=== PATIENT | male | born 1970 | race Caucasian/White ===

== ENCOUNTER 2021-01-21 10:19 | Inpatient (IN) ==
--- NOTE | 2021-01-21 10:38 | Emergency Department Note ---
Impression & Plan Elevated LFTs, Syncope, Hyperbilirubinemia, Hypokalemia, Pancytopenia ED Provider Note NAME: FREDDIE PIERCE AGE: 50 SEX: M : 1970 ARRIVES VIA: Ambulance INFORMANT: Patient, prehospital personnel ED PROVIDER(S): Arun Martinez DO CHIEF COMPLAINT: Possible seizure HPI: The patient is a 50-year-old male who presented to the emergency department from [facility] where he is inpatient for alcohol detox. He presented to the emergency department for possible seizure. The patient does not know what happened. He was recently excepted at [facility] yesterday. He last drank alcohol yesterday morning and was medically cleared by his primary care physician and then sent to [facility]. The patient normally drinks alcohol every day. He normally drinks a sixpack of alcohol a day. He is known to have very significant cirrhosis. He is not a candidate for transplant at this time because he continues to use alcohol but the patient is going to [facility] to try to stop drinking. He is noticed no lower extremity swelling. He denies having any trauma. He denies having any chest pain or difficulty breathing. He has had no recent falls. He denies having any neck pain. ROS: See above HPI for pertinent positives & negatives. A total of 10 systems reviewed and were otherwise negative. PAST MEDICAL HISTORY: See Below PAST SURGICAL HISTORY: See Below FAMILY HISTORY: See Below SOCIAL HISTORY: See Below HOME MEDICATIONS: See Below ALLERGIES: See Below VITALS: See Below PHYSICAL EXAMINATION: GENERAL: The patient is awake and alert. The patient is somewhat anxious appearing. EYES: The conjunctivae are icteric. The pupils are round and reactive. EARS, NOSE, MOUTH AND THROAT: The nose is without any evidence of any deformity. Mucous membranes are moist. Tongue is midline. NECK: The neck is nontender and supple. RESPIRATORY: Normal respiratory effort is noted there is no evidence of wheezing rhonchi or rales CARDIOVASCULAR: Regular rate and rhythm noted there no murmurs rubs or gallops normal S1 normal S2. GASTROINTESTINAL: The abdomen is soft. Abdomen is nontender. MUSCULOSKELETAL/EXTREMITIES: There is no evidence of gross deformity full range of motion is noted in the hips and shoulders. SKIN: Skin is warm and dry. NEUROLOGIC: Patient is awake alert and oriented x3. Strength is symmetric. MEDICAL DECISION MAKING: The patient is a 50-year-old male who presented to the emergency department from [facility] where he is currently inpatient for alcohol addiction. The patient had a syncopal episode at [facility]. This could be a seizure. He did not appear to have signs of withdrawal. I discussed the patient's laboratory and radiographic studies with him. He was found to have significant abnormalities with his liver function studies as well as pancytopenia. I discussed this case with the unassigned field tech. They feel we can manage this patient here. They also recommended that he be admitted to the hospitalist group. The patient was treated with IV fluids as well as potassium replacement. He was reevaluated multiple times. He was agreeable with the plan. I discussed his case with the on-call [facility] hospitalist. They have agreed to evaluate the patient in the emergency department for further management and disposition. Triage Nursing notes reviewed. Prior medical records reviewed Vital Signs: reviewed and remarkable for hypotension. Differential diagnosis: Epilepsy, infection, hypoglycemia, electrolyte abnormalities, cardiac sources, intracerebral event, trauma, toxicologic, neurologic, syncope, as well as other pathologies. ER treatment provided: See below Diagnostics interpreted by me: ECG: EKG was obtained in the emergency department. My interpretation is normal sinus rhythm at 63 bpm. There is no ectopy. There is no acute ST segment abno rmalities. No previous tracing was available for comparison. Cardiac Monitoring: An order was placed for continuous cardiac monitoring. The monitor shows a rate of 75 bpm with sinus rhythm. Laboratory studies: As stated above and show below. Imaging studies: See below Consultation(s): I discussed this case with Rola Bowen who is on for the [facility] group. They will evaluate the patient in the emergency department. I discussed this case with the on-call [facility] hospitalist group, Dr. Quinonez they will evaluate the patient in the emergency department. Past Med/Surg History Medical History Alcoholic cirrhosis Bipolar disorder Chronic alcohol abuse Depression with anxiety Surgical History Gastric bypass status for obesity Social History (Updated 01/21/21 @ 10:36 by Arun Martinez DO) Smoking Status: Current every day smoker Tobacco Type: Smokeless Tobacco (Dip or Chew) Hx Alcohol Use: Yes Alcohol type: beer Alcohol Intake Frequency: 4 or More x per/Week Feels Safe at Home: Yes Allergies Allergies Allergy/AdvReac Type Severity Reaction Status Date / Time No Known Allergies Allergy Unverified 01/21/21 11:47 Home Meds Home Medications Medication Instructions Recorded Confirmed buspirone 30 mg PO BID 01/21/21 01/21/21 propranolol 10 mg PO BID 01/21/21 01/21/21 quetiapine [Seroquel] 100 mg PO HS 01/21/21 01/21/21 Results & Data (ED) Vital Signs Vital Signs - 24 hr 01/21/21 10:34 01/21/21 10:40 01/21/21 11:12 Temperature 36.6 C Temperature Source Oral Pulse Rate 66 Pulse Rate from SpO2 Sensor 62 Respiratory Rate 18 19 Blood Pressure 91/65 L 97/67 L Blood Pressure Mean 73 77 Pulse Oximetry 98 98 100 Oxygen Delivery Method Room Air Room Air Sepsis Recent Fever Within 48 Hours No Sepsis New/Unexplained Change in Mental Status No Sepsis Action Taken by Nursing No Action Required 01/21/21 11:59 01/21/21 12:54 01/21/21 13:00 Temperature Temperature Source Pulse Rate 100 H 73 Pulse Rate from SpO2 Sensor 70 76 67 Respiratory Rate 19 16 12 Blood Pressure 90/61 L 90/58 L 82/58 L Blood Pressure Mean 70 68 66 Pulse Oximetry 96 97 98 Oxygen Delivery Method Sepsis Recent Fever Within 48 Hours Sepsis New/Unexplained Change in Mental Status Sepsis Action Taken by Nursing 01/21/21 14:17 01/21/21 14:31 01/21/21 15:00 Temperature Temperature Source Pulse Rate 66 Pulse Rate from SpO2 Sensor 64 64 77 Respiratory Rate 16 19 21 Blood Pressure 103/65 89/64 L Blood Pressure Mean 77 72 Pulse Oximetry 99 100 98 Oxygen Delivery Method Sepsis Recent Fever Within 48 Hours Sepsis New/Unexplained Change in Mental Status Sepsis Action Taken by Nursing 01/21/21 15:01 01/21/21 15:30 01/21/21 16:00 Temperature Temperature Source Pulse Rate 74 Pulse Rate from SpO2 Sensor 72 75 67 Respiratory Rate 21 22 15 Blood Pressure 96/67 L 96/60 L 82/59 L Blood Pressure Mean 76 72 66 Pulse Oximetry 99 98 100 Oxygen Delivery Method Sepsis Recent Fever Within 48 Hours Sepsis New/Unexplained Change in Mental Status Sepsis Action Taken by [facility]pc Medications Current Medication List: was personally reviewed by me Laboratory Data Attestation: I reviewed the patient's lab results. Result diagrams: 01/21/21 11:01 01/21/21 11:01 Lab Results 01/21/21 01/21/21 01/21/21 Range/Units 11:01 11:01 11:01 WBC 3.56 L (4.8-10.8) K/uL RBC 3.18 L (4.7-6.1) M/uL Hgb 11.2 L (14.0-18.0) g/dL Hct 33.2 L (42-52) % MCV 104.4 H (80-100) fL MCH 35.2 H (25-34) pg MCHC 33.7 (32-36) g/dL RDW Std Deviation 58.6 H (36.4-46.3) fL RDW Coeff of Alexandra 15.4 H (11.5-14.5) % Plt Count 86 L (130-400) K/uL MPV 11.3 H (7.4-10.4) fL Immature Gran % (Auto) 0.3 % Neut % (Auto) 71.3 % Lymph % (Auto) 16.6 % Rowan % (Auto) 10.4 % Eos % (Auto) 1.1 % Baso % (Auto) 0.3 % Neut # (Auto) 2.54 (1.4-6.5) K/uL Lymph # (Auto) 0.59 L (1.2-3.4) K/uL Rowan # (Auto) 0.37 (0.11-0.59) K/uL Eos # (Auto) 0.04 (0-0.5) K/uL Baso # (Auto) 0.01 (0-0.2) K/uL Immature Gran # (Auto) 0.01 (0.00-0.02) K/uL Platelet Estimate Decreased L (Normal) Target Cells 1+ PT 13.3 H (9.0-12.0) Seconds INR 1.3 H (0.9-1.1) APTT 31.0 (21.0-31.0) Seconds PTT Ratio 1.2 Sodium 136 (136-145) mmol/L Potassium 2.8 L (3.5-5.1) mmol/L Chloride 103 (98-107) mmol/L Carbon Dioxide 28 (21-32) mmol/L Anion Gap 5.0 (3-11) BUN 5 L (7-18) mg/dl Creatinine 0.58 L (0.6-1.4) mg/dl Est Cr Clr Drug Dosing 123.2 ml/min Est GFR ( Amer) 139.7 ml/min Est GFR (Non-Af Amer) 120.6 ml/min BUN/Creatinine Ratio 8.0 L (10-20) Glucose 111 H (70-99) mg/dl Calcium 8.1 L (8.5-10.1) mg/dl Magnesium 2.0 (1.8-2.4) mg/dl Total Bilirubin 9.0 H (0.2-1) mg/dl Direct Bilirubin 6.5 H (0-0.2) mg/dl AST 252 H (15-37) U/L ALT 63 (12-78) U/L Alkaline Phosphatase 325 H (45-117) U/L Ammonia (11-32) umol/L Total Creatine Kinase 27 L (39-308) U/L Troponin I < 0.015 (0-0.045) ng/ml Total Protein 7.2 (6.4-8.2) gm/dl Albumin 2.0 L (3.4-5.0) gm/dl Globulin 5.2 H (2.5-4.0) gm/dl Albumin/Globulin Ratio 0.4 L (0.9-2) Lipase 53 L (73-393) U/L Prolactin ng/ml Salicylates (2.8-20) mg/dl Acetaminophen (10-30) ug/ml Ethyl Alcohol mg/dL (0-3) mg/dl COVID-19 Eval Order SARS-CoV-2 (PCR) (Negative) 01/21/21 01/21/21 01/21/21 Range/Units 11:01 11:01 11:01 WBC (4.8-10.8) K/uL RBC (4.7-6.1) M/uL Hgb (14.0-18.0) g/dL Hct (42-52) % MCV (80-100) fL MCH (25-34) pg MCHC (32-36) g/dL RDW Std Deviation (36.4-46.3) fL RDW Coeff of Alexandra (11.5-14.5) % Plt Count (130-400) K/uL MPV (7.4-10.4) fL Immature Gran % (Auto) % Neut % (Auto) % Lymph % (Auto) % Rowan % (Auto) % Eos % (Auto) % Baso % (Auto) % Neut # (Auto) (1.4-6.5) K/uL Lymph # (Auto) (1.2-3.4) K/uL Rowan # (Auto) (0.11-0.59) K/uL Eos # (Auto) (0-0.5) K/uL Baso # (Auto) (0-0.2) K/uL Immature Gran # (Auto) (0.00-0.02) K/uL Platelet Estimate (Normal) Target Cells PT (9.0-12.0) Seconds INR (0.9-1.1) APTT (21.0-31.0) Seconds PTT Ratio Sodium (136-145) mmol/L Potassium (3.5-5.1) mmol/L Chloride (98-107) mmol/L Carbon Dioxide (21-32) mmol/L Anion Gap (3-11) BUN (7-18) mg/dl Creatinine (0.6-1.4) mg/dl Est Cr Clr Drug Dosing ml/min Est GFR ( Amer) ml/min Est GFR (Non-Af Amer) ml/min BUN/Creatinine Ratio (10-20) Glucose (70-99) mg/dl Calcium (8.5-10.1) mg/dl Magnesium (1.8-2.4) mg/dl Total Bilirubin (0.2-1) mg/dl Direct Bilirubin (0-0.2) mg/dl AST (15-37) U/L ALT (12-78) U/L Alkaline Phosphatase (45-117) U/L Ammonia (11-32) umol/L Total Creatine Kinase (39-308) U/L Troponin I (0-0.045) ng/ml Total Protein (6.4-8.2) gm/dl Albumin (3.4-5.0) gm/dl Globulin (2.5-4.0) gm/dl Albumin/Globulin Ratio (0.9-2) Lipase (73-393) U/L Prolactin 66.71 ng/ml Salicylates (2.8-20) mg/dl Acetaminophen (10-30) ug/ml Ethyl Alcohol mg/dL < 3.0 (0-3) mg/dl COVID-19 Eval Order SARS-CoV-2 (PCR) (Negative) 01/21/21 01/21/21 01/21/21 Range/Units 11:01 11:53 11:53 WBC (4.8-10.8) K/uL RBC (4.7-6.1) M/uL Hgb (14.0-18.0) g/dL Hct (42-52) % MCV (80-100) fL MCH (25-34) pg MCHC (32-36) g/dL RDW Std Deviation (36.4-46.3) fL RDW Coeff of Alexandra (11.5-14.5) % Plt Count (130-400) K/uL MPV (7.4-10.4) fL Immature Gran % (Auto) % Neut % (Auto) % Lymph % (Auto) % Rowan % (Auto) % Eos % (Auto) % Baso % (Auto) % Neut # (Auto) (1.4-6.5) K/uL Lymph # (Auto) (1.2-3.4) K/uL Rowan # (Auto) (0.11-0.59) K/uL Eos # (Auto) (0-0.5) K/uL Baso # (Auto) (0-0.2) K/uL Immature Gran # (Auto) (0.00-0.02) K/uL Platelet Estimate (Normal) Target Cells PT (9.0-12.0) Seconds INR (0.9-1.1) APTT (21.0-31.0) Seconds PTT Ratio Sodium (136-145) mmol/L Potassium (3.5-5.1) mmol/L Chloride (98-107) mmol/L Carbon Dioxide (21-32) mmol/L Anion Gap (3-11) BUN (7-18) mg/dl Creatinine (0.6-1.4) mg/dl Est Cr Clr Drug Dosing ml/min Est GFR ( Amer) ml/min Est GFR (Non-Af Amer) ml/min BUN/Creatinine Ratio (10-20) Glucose (70-99) mg/dl Calcium (8.5-10.1) mg/dl Magnesium (1.8-2.4) mg/dl Total Bilirubin (0.2-1) mg/dl Direct Bilirubin (0-0.2) mg/dl AST (15-37) U/L ALT (12-78) U/L Alkaline Phosphatase (45-117) U/L Ammonia < 10.0 L (11-32) umol/L Total Creatine Kinase (39-308) U/L Troponin I (0-0.045) ng/ml Total Protein (6.4-8.2) gm/dl Albumin (3.4-5.0) gm/dl Globulin (2.5-4.0) gm/dl Albumin/Globulin Ratio (0.9-2) Lipase (73-393) U/L Prolactin ng/ml Salicylates (2.8-20) mg/dl Acetaminophen (10-30) ug/ml Ethyl Alcohol mg/dL (0-3) mg/dl COVID-19 Eval Order Covid19 at [facility] SARS-CoV-2 (PCR) NEGATIVE (Negative) Administered Medications Discontinued Medications Sodium Chloride (Nss) 500 mls @ 999 mls/hr IV .Q31M JASS Stop: 01/21/21 11:15 Last Infusion: 01/21/21 11:12 Dose: 0 mls/hr Documented by: [id number] Admin: 01/21/21 10:41 Dose: 999 mls/hr Documented by: [id number] Sodium Chloride (Nss 1000ml) 500 mls @ 999 mls/hr IV .Q31M ONE Stop: 01/21/21 15:28 Last Infusion: 01/21/21 15:40 Dose: 0 mls/hr Documented by: [id number] Admin: 01/21/21 15:08 Dose: 999 mls/hr Documented by: [id number] Potassium Chloride (K Jakob / Wtr) 10 meq in 100 mls @ 100 mls/hr IV ONE ONE Stop: 01/21/21 15:57 Last Infusion: 01/21/21 16:08 Dose: 0 mls/hr Documented by: [id number] Admin: 01/21/21 15:08 Dose: 100 mls/hr Documented by: [id number] Sodium Chloride (Nss 1000ml) 500 mls @ 999 mls/hr IV .Q31M ONE Stop: 01/21/21 16:07 Last Infusion: 01/21/21 16:19 Dose: 0 mls/hr Documented by: [id number] Admin: 01/21/21 15:40 Dose: 999 mls/hr Documented by: [id number] Potassium Chloride (Potassium Chloride Crtab 20 Meq Tabcr) 20 meq PO NOW STA Stop: 01/21/21 14:59 Last Admin: 01/21/21 15:08 Dose: 20 meq Documented by: [id number] Imaging Data Radiologist's Impression: Chest X-Ray 01/21/21 10:34 XR chest 1V portable CLINICAL HISTORY: Atypical chest pain COMPARISON STUDY: No previous studies for comparison. FINDINGS: The heart is normal in size. There is no failure. There is no focal pulmonary consolidation. There is a 9 mm right midlung zone pulmonary nodule versus vascular summation. A chest CT scan is recommended in follow-up. There is no failure. There are no pleural effusions.[There is equivocal slight interstitial thickening. IMPRESSION: 1. 9 mm right midlung zone pulmonary nodule versus summation. A chest CT scan is recommended in follow-up. ACT 112: Positive. There are findings on this exam that require communication between the performing entity and the patient following Patient Test Result Information Act ([place] Act 112) guidelines. Electronically signed by: Papa Lopez M.D. 01/21/2021 10:[address] 01/21/21 10:34 CT OF THE HEAD WITHOUT CONTRAST CLINICAL HISTORY: SZ COMPARISON STUDY: No previous studies for comparison. CT DOSE: 537.48 mGy.cm TECHNIQUE: Helical axial images of the head were obtained without IV contrast. Automated exposure control was utilized for the study. A dose lowering technique was utilized adhering to the principles of ALARA. FINDINGS: No acute intracranial hemorrhage, midline shift or mass effect is present. Ventricular system is normal. Basilar cisterns are patent. There are no extra-axial collections. There are no findings to suggest acute dural sinus thrombosis or acute territorial infarct. There is no calvarial fracture. Left ethmoid air cells are partially opacified. IMPRESSION: No acute intracranial findings. ACT 112: Negative or not required by law. Electronically signed by: Michel Mccrary M.D. 01/21/2021 11:42 AM Discharge Plan Visit Data Chief Complaint: Seizure Stated Complaint: POSSIBLE SEIZURE, DETOX ED Provider: Arun Martinez Discharge Problem: Elevated LFTs, Syncope, Hyperbilirubinemia, Hypokalemia, Pancytopenia Patient Disposition: Being Evaluated by Hospitalist Condition: Good Forms Stand Alone Forms: [email or web address] Prescriptions Prescriptions: No Action quetiapine [Seroquel] 100 mg Tablet 100 mg PO HS RF: 0 propranolol 10 mg Tablet 10 mg PO BID RF: 0 buspirone 30 mg Tablet 30 mg PO BID RF: 0 Referrals Referrals: Jorje Shafer M.D. [Primary Care Provider] - Discharge Problem: Syncope Qualifiers: Syncope type: unspecified Qualified Code(s): R55 - Syncope and collapse
[2021-01-21] MEDS ORDERED: SODIUM CHLORIDE 0.9% 500 ML IV SCH (10:45)
--- NOTE | 2021-01-21 10:51 | XRay Report ---
XR chest 1V portable CLINICAL HISTORY: Atypical chest pain COMPARISON STUDY: No previous studies for comparison. FINDINGS: The heart is normal in size. There is no failure. There is no focal pulmonary consolidation . There is a 9 mm right midlung zone pulmonary nodule versus vascular summation. A chest CT scan is r ecommended in follow-up. There is no failure. There are no pleural effusions.[There is equivocal slig ht interstitial thickening. IMPRESSION: 1. 9 mm right midlung zone pulmonary nodule versus summation. A chest CT scan is recommended in follo w-up. ACT 112: Positive. There are findings on this exam that require communication between the performing entity and the patient following Patient Test Result Information Act ([place] Act 112) guidelines. Electronically signed by: Papa Lopez M.D. 01/21/2021 10:50 AM
[2021-01-21 11:25] LABS: INR 1.3 (0.9-1.1); Partial Thromboplastin Ratio 1.2; Prothrombin Time 13.3 Seconds (9.0-12.0)
[2021-01-21 11:34] LABS: Basophils # (auto) 0.01 K/uL (0-0.2); Basophils % (auto) 0.3 %; Eosinophils # (auto) 0.04 K/uL (0-0.5); Eosinophils % (auto) 1.1 %; Hematocrit (blood only) 33.2 % (42-52); Hemoglobin 11.2 g/dL (14.0-18.0); Immature Granulocytes # (auto) 0.01 K/uL (0.00-0.02); Immature Granulocytes % (auto) 0.3 %; Lymphocytes # (auto) 0.59 K/uL (1.2-3.4); Lymphocytes % (auto) 16.6 %; Mean Corpuscular Hemoglobin 35.2 pg (25-34); Mean Corpuscular Hgb Conc 33.7 g/dL (32-36); Mean Corpuscular Volume 104.4 fL (80-100); Mean Platelet Volume 11.3 fL (7.4-10.4); Monocytes # (auto) 0.37 K/uL (0.11-0.59); Monocytes % (auto) 10.4 %; Neutrophils # (auto) 2.54 K/uL (1.4-6.5); Neutrophils % (auto) 71.3 %; Platelet Count 86 K/uL (130-400); Platelet Estimate Decreased (Normal); RDW Coefficient of Variation 15.4 % (11.5-14.5); RDW Standard Deviation 58.6 fL (36.4-46.3); Red Blood Count 3.18 M/uL (4.7-6.1); Target Cells 1+; White Blood Count 3.56 K/uL (4.8-10.8)
[2021-01-21 11:38] LABS: Alanine Aminotransferase 63 U/L (12-78); Aspartate Aminotransferase 252 U/L (15-37); Bilirubin Direct 6.5 mg/dl (0-0.2); Blood Urea Nitrogen 5 mg/dl (7-18); Calcium 8.1 mg/dl (8.5-10.1); Carbon Dioxide 28 mmol/L (21-32); Chloride 103 mmol/L (98-107); Creatinine Clr Calc Pharmacy 123.2 ml/min; Est GFR (African American) 139.7 ml/min; Est GFR (Non-African American) 120.6 ml/min; Glucose 111 mg/dl (70-99); Lipase 53 U/L (73-393); Potassium 2.8 mmol/L (3.5-5.1); Sodium 136 mmol/L (136-145)
[2021-01-21 11:40] LABS: Albumin Globulin Ratio 0.4 (0.9-2); Alkaline Phosphatase 325 U/L (45-117); Creatine Kinase 27 U/L (39-308); Globulin 5.2 gm/dl (2.5-4.0); Total Protein 7.2 gm/dl (6.4-8.2); Troponin I < 0.015 ng/ml (0-0.045)
--- NOTE | 2021-01-21 11:44 | CT Scan Report ---
CT OF THE HEAD WITHOUT CONTRAST CLINICAL HISTORY: SZ COMPARISON STUDY: No previous studies for comparison. CT DOSE: 537.48 mGy.cm TECHNIQUE: Helical axial images of the head were obtained without IV contrast. Automated exposure con trol was utilized for the study. A dose lowering technique was utilized adhering to the principles o f ALARA. FINDINGS: No acute intracranial hemorrhage, midline shift or mass effect is present. Ventricular syst em is normal. Basilar cisterns are patent. There are no extra-axial collections. There are no finding s to suggest acute dural sinus thrombosis or acute territorial infarct. There is no calvarial fractur e. Left ethmoid air cells are partially opacified. IMPRESSION: No acute intracranial findings. ACT 112: Negative or not required by law. Electronically signed by: Michel Mccrary M.D. 01/21/2021 11:42 AM
[2021-01-21] MEDS ORDERED: POTASSIUM CHLORIDE / WTR 10 MEQ/100 ML PLCT IV ONE (14:58)
[2021-01-21] MEDS ORDERED: POTASSIUM CHLORIDE CRTAB 20 MEQ TABCR PO STA (14:58)
[2021-01-21] MEDS ORDERED: SODIUM CHLORIDE 0.9% 1000ML 500 ML IV ONE ×2 (14:58→15:37)
--- NOTE | 2021-01-21 15:55 | Electrocardiogram Report ---
Test Reason : Blood Pressure : / mmHG Vent. Rate : 063 BPM Atrial Rate : 063 BPM P-R Int : 164 ms QRS Dur : 084 ms QT Int : 452 ms P-R-T Axes : 068 028 028 degrees QTc Int : 462 ms Normal sinus rhythm Normal ECG No previous ECGs available Confirmed by Armaan Cobb ([id number]) on 01/21/2021 3:55:26 PM Referred By: Confirmed By:Armaan Cobb
--- NOTE | 2021-01-21 16:13 | Gastrointestinal Consultation ---
Date of Consultation January 21, 2021 Assessment & Plan (1) Elevated LFTs: 50 year old male with ETOH abuse history, sober from ETOH x 4 days admitted w/ report of syncopal episode at [facility]. He is awake, alert, oriented, answering questions appropriately although is a poor historian without evidence of asterixis. Ammonia level WNL and INR 1.3 w/ thrombocytopenia. DDX ETOH hepatitis in the setting of ETOH cirrhosis. MELD 19, DF 15 Recommend admission here locally ETOH withdrawal protocol Check urine culture, blood cultures, chest XR ABD US to rule out biliary obstruction Acute hep panel ETOH cessation Daily MELD and DF labs Defer glucocorticoid/NAC therapy presently given low DF If rising INR or change in mental status consider transfer to transplant center Thank you for allowing us to participate in the care of this patient. Please call with any acute changes, questions or concerns. Please see addendum below with additional recommendation from my supervising physician. Supervising Physician Co-Signing Physician Notes Attending attestation I have seen, examined this patient, and agree with the findings and above by our mid-level provider CAMERON Ruelas, with the following additions: Patient adm with possible syncope vs seizure Concern for Alcoholic hepatitis, no signs or symptoms of bleeding Rule out infection, CXR, rule out obstruction IVF, Etoh Withdrawl protocoal, call with questions History of Present Illness Reason for Consultation: elevated LFTs Requesting Physician: Juan Attending Physician: Juan History of Present Illness 50 year old male, difficult historian presenting from [facility] program for evaluation of syncopal episodes - GI asked to evaluate given elevated LFTs, jaundice. Pt was seen and evaluated in the ED w/ Dr. Martinez. Pt notes that he has used ETOH intermittent for years. This was fairy constant, suggesting 12 beers daily for quite some time. Sometime this year he did stop ETOH and was sober for 6 months. Notes he lost his insurance, suffered a fracture and started using ETOH again. About 6 beers daily. A few weeks ago, a foreign language instructor noted he was jaundiced which prompted ETOH cessation. Feeling well. Denies abd pain. No nausea. Will have intermittent regurgitation/emesis from time to time. No GERD. Moving bowel well. Denies black bloody stools but suggests he does not often look. Last ETOH was 4 days ago, 6 beers Denies IV/IN drug use Mother had cirrhosis but was not a drinker Allergies Allergy/AdvReac Type Severity Reaction Status Date / Time No Known Allergies Allergy Unverified 01/21/21 11:47 Home Medications Medication Instructions Recorded Confirmed Type buspirone 30 mg PO BID 01/21/21 01/21/21 History propranolol 10 mg PO BID 01/21/21 01/21/21 History quetiapine [Seroquel] 100 mg PO HS 01/21/21 01/21/21 History Patient History Medical History Alcoholic cirrhosis Bipolar disorder Chronic alcohol abuse Depression with anxiety Surgical History Gastric bypass status for obesity Social History (Updated 01/21/21 @ 10:36 by Arun Martinez DO) Smoking Status: Current every day smoker Tobacco Type: Smokeless Tobacco (Dip or Chew) Hx Alcohol Use: Yes Alcohol type: beer Alcohol Intake Frequency: 4 or More x per/Week Feels Safe at Home: Yes Review of Systems Review of Systems: All systems reviewed & are unremarkable except as noted in HPI & below Physical Exam Constitutional: + ill appearing (jaundiced), + thin, cooperative and co mfortable; no acute distress and not combative Neck: trachea midline; no tracheal deviation and no neck crepitus Respiratory: normal respiratory effort; no respiratory distress, no labored breathing and no cough Cardiovascular: Rate/Rhythm: regular rate and regular rhythm Heart Sounds: normal S1 and normal S2 Gastrointestinal (Abdomen): Percussion/Palpation: abdomen soft; abdomen nontender, no guarding, abdomen not rigid, no hernia and no abdominal mass Skin: no rashes, warm and dry + jaundice Results & Data ([facility]) Vital Signs (Past 12 Hours) Vital Signs Temp Pulse Resp BP Pulse Ox 01/21/21 15:30 74 22 96/60 L 98 01/21/21 15:01 21 96/67 L 99 01/21/21 15:00 21 98 01/21/21 14:31 66 19 89/64 L 100 01/21/21 14:17 16 103/65 99 01/21/21 13:00 73 12 82/58 L 98 01/21/21 12:54 100 H 16 90/58 L 97 01/21/21 11:59 19 90/61 L 96 01/21/21 11:12 19 97/67 L 100 01/21/21 10:40 98 01/21/21 10:34 36.6 C 66 18 91/65 L 98 Laboratory Results 01/21/21 01/21/21 01/21/21 Range/Units 11:53 11:53 11:49 WBC (4.8-10.8) K/uL RBC (4.7-6.1) M/uL Hgb (14.0-18.0) g/dL Hct (42-52) % MCV (80-100) fL MCH (25-34) pg MCHC (32-36) g/dL RDW Std Deviation (36.4-46.3) fL RDW Coeff of Alexandra (11.5-14.5) % Plt Count (130-400) K/uL MPV (7.4-10.4) fL Immature Gran % (Auto) % Neut % (Auto) % Lymph % (Auto) % Parke % (Auto) % Eos % (Auto) % Baso % (Auto) % Neut # (Auto) (1.4-6.5) K/uL Lymph # (Auto) (1.2-3.4) K/uL Parke # (Auto) (0.11-0.59) K/uL Eos # (Auto) (0-0.5) K/uL Baso # (Auto) (0-0.2) K/uL Immature Gran # (Auto) (0.00-0.02) K/uL Platelet Estimate (Normal) Target Cells PT (9.0-12.0) Seconds INR (0.9-1.1) APTT (21.0-31.0) Seconds PTT Ratio Sodium (136-145) mmol/L Potassium (3.5-5.1) mmol/L Chloride (98-107) mmol/L Carbon Dioxide (21-32) mmol/L Anion Gap (3-11) BUN (7-18) mg/dl Creatinine (0.6-1.4) mg/dl Est Cr Clr Drug Dosing ml/min Est GFR ( Amer) ml/min Est GFR (Non-Af Amer) ml/min BUN/Creatinine Ratio (10-20) Glucose (70-99) mg/dl Calcium (8.5-10.1) mg/dl Magnesium (1.8-2.4) mg/dl Total Bilirubin (0.2-1) mg/dl Direct Bilirubin (0-0.2) mg/dl AST (15-37) U/L ALT (12-78) U/L Alkaline Phosphatase (45-117) U/L Ammonia (11-32) umol/L Total Creatine Kinase (39-308) U/L Troponin I (0-0.045) ng/ml Total Protein (6.4-8.2) gm/dl Albumin (3.4-5.0) gm/dl Globulin (2.5-4.0) gm/dl Albumin/Globulin Ratio (0.9-2) Lipase (73-393) U/L Prolactin ng/ml Salicylates (2.8-20) mg/dl Acetaminophen (10-30) ug/ml Ethyl Alcohol mg/dL (0-3) mg/dl COVID-19 Eval Order Covid19 at [facility] SARS-CoV-2 (PCR) NEGATIVE (Negative) Miscellaneous Test Pending Miscellaneous Test 2 Pending 01/21/21 01/21/21 01/21/21 Range/Units 11:01 11:01 11:01 WBC (4.8-10.8) K/uL RBC (4.7-6.1) M/uL Hgb (14.0-18.0) g/dL Hct (42-52) % MCV (80-100) fL MCH (25-34) pg MCHC (32-36) g/dL RDW Std Deviation (36.4-46.3) fL RDW Coeff of Alexandra (11.5-14.5) % Plt Count (130-400) K/uL MPV (7.4-10.4) fL Immature Gran % (Auto) % Neut % (Auto) % Lymph % (Auto) % Parke % (Auto) % Eos % (Auto) % Baso % (Auto) % Neut # (Auto) (1.4-6.5) K/uL Lymph # (Auto) (1.2-3.4) K/uL Parke # (Auto) (0.11-0.59) K/uL Eos # (Auto) (0-0.5) K/uL Baso # (Auto) (0-0.2) K/uL Immature Gran # (Auto) (0.00-0.02) K/uL Platelet Estimate (Normal) Target Cells PT (9.0-12.0) Seconds INR (0.9-1.1) APTT (21.0-31.0) Seconds PTT Ratio Sodium (136-145) mmol/L Potassium (3.5-5.1) mmol/L Chloride (98-107) mmol/L Carbon Dioxide (21-32) mmol/L Anion Gap (3-11) BUN (7-18) mg/dl Creatinine (0.6-1.4) mg/dl Est Cr Clr Drug Dosing ml/min Est GFR ( Amer) ml/min Est GFR (Non-Af Amer) ml/min BUN/Creatinine Ratio (10-20) Glucose (70-99) mg/dl Calcium (8.5-10.1) mg/dl Magnesium (1.8-2.4) mg/dl Total Bilirubin (0.2-1) mg/dl Direct Bilirubin (0-0.2) mg/dl AST (15-37) U/L ALT (12-78) U/L Alkaline Phosphatase (45-117) U/L Ammonia < 10.0 L (11-32) umol/L Total Creatine Kinase (39-308) U/L Troponin I (0-0.045) ng/ml Total Protein (6.4-8.2) gm/dl Albumin (3.4-5.0) gm/dl Globulin (2.5-4.0) gm/dl Albumin/Globulin Ratio (0.9-2) Lipase (73-393) U/L Prolactin ng/ml Salicylates (2.8-20) mg/dl Acetaminophen (10-30) ug/ml Ethyl Alcohol mg/dL < 3.0 (0-3) mg/dl COVID-19 Eval Order SARS-CoV-2 (PCR) (Negative) Miscellaneous Test Miscellaneous Test 2 01/21/21 01/21/21 01/21/21 Range/Units 11:01 11:01 11:01 WBC (4.8-10.8) K/uL RBC (4.7-6.1) M/uL Hgb (14.0-18.0) g/dL Hct (42-52) % MCV (80-100) fL MCH (25-34) pg MCHC (32-36) g/dL RDW Std Deviation (36.4-46.3) fL RDW Coeff of Alexandra (11.5-14.5) % Plt Count (130-400) K/uL MPV (7.4-10.4) fL Immature Gran % (Auto) % Neut % (Auto) % Lymph % (Auto) % Parke % (Auto) % Eos % (Auto) % Baso % (Auto) % Neut # (Auto) (1.4-6.5) K/uL Lymph # (Auto) (1.2-3.4) K/uL Parke # (Auto) (0.11-0.59) K/uL Eos # (Auto) (0-0.5) K/uL Baso # (Auto) (0-0.2) K/uL Immature Gran # (Auto) (0.00-0.02) K/uL Platelet Estimate (Normal) Target Cells PT 13.3 H (9.0-12.0) Seconds INR 1.3 H (0.9-1.1) APTT 31.0 (21.0-31.0) Seconds PTT Ratio 1.2 Sodium 136 (136-145) mmol/L Potassium 2.8 L (3.5-5.1) mmol/L Chloride 103 (98-107) mmol/L Carbon Dioxide 28 (21-32) mmol/L Anion Gap 5.0 (3-11) BUN 5 L (7-18) mg/dl Creatinine 0.58 L (0.6-1.4) mg/dl Est Cr Clr Drug Dosing 123.2 ml/min Est GFR ( Amer) 139.7 ml/min Est GFR (Non-Af Amer) 120.6 ml/min BUN/Creatinine Ratio 8.0 L (10-20) Glucose 111 H (70-99) mg/dl Calcium 8.1 L (8.5-10.1) mg/dl Magnesium 2.0 (1.8-2.4) mg/dl Total Bilirubin 9.0 H (0.2-1) mg/dl Direct Bilirubin 6.5 H (0-0.2) mg/dl AST 252 H (15-37) U/L ALT 63 (12-78) U/L Alkaline Phosphatase 325 H (45-117) U/L Ammonia (11-32) umol/L Total Creatine Kinase 27 L (39-308) U/L Troponin I < 0.015 (0-0.045) ng/ml Total Protein 7.2 (6.4-8.2) gm/dl Albumin 2.0 L (3.4-5.0) gm/dl Globulin 5.2 H (2.5-4.0) gm/dl Albumin/Globulin Ratio 0.4 L (0.9-2) Lipase 53 L (73-393) U/L Prolactin 66.71 ng/ml Salicylates (2.8-20) mg/dl Acetaminophen (10-30) ug/ml Ethyl Alcohol mg/dL (0-3) mg/dl COVID-19 Eval Order SARS-CoV-2 (PCR) (Negative) Miscellaneous Test Miscellaneous Test 2 01/21/21 Range/Units 11:01 WBC 3.56 L (4.8-10.8) K/uL RBC 3.18 L (4.7-6.1) M/uL Hgb 11.2 L (14.0-18.0) g/dL Hct 33.2 L (42-52) % MCV 104.4 H (80-100) fL MCH 35.2 H (25-34) pg MCHC 33.7 (32-36) g/dL RDW Std Deviation 58.6 H (36.4-46.3) fL RDW Coeff of Alexandra 15.4 H (11.5-14.5) % Plt Count 86 L (130-400) K/uL MPV 11.3 H (7.4-10.4) fL Immature Gran % (Auto) 0.3 % Neut % (Auto) 71.3 % Lymph % (Auto) 16.6 % Parke % (Auto) 10.4 % Eos % (Auto) 1.1 % Baso % (Auto) 0.3 % Neut # (Auto) 2.54 (1.4-6.5) K/uL Lymph # (Auto) 0.59 L (1.2-3.4) K/uL Parke # (Auto) 0.37 (0.11-0.59) K/uL Eos # (Auto) 0.04 (0-0.5) K/uL Baso # (Auto) 0.01 (0-0.2) K/uL Immature Gran # (Auto) 0.01 (0.00-0.02) K/uL Platelet Estimate Decreased L (Normal) Target Cells 1+ PT (9.0-12.0) Seconds INR (0.9-1.1) APTT (21.0-31.0) Seconds PTT Ratio Sodium (136-145) mmol/L Potassium (3.5-5.1) mmol/L Chloride (98-107) mmol/L Carbon Dioxide (21-32) mmol/L Anion Gap (3-11) BUN (7-18) mg/dl Creatinine (0.6-1.4) mg/dl Est Cr Clr Drug Dosing ml/min Est GFR ( Amer) ml/min Est GFR (Non-Af Amer) ml/min BUN/Creatinine Ratio (10-20) Glucose (70-99) mg/dl Calcium (8.5-10.1) mg/dl Magnesium (1.8-2.4) mg/dl Total Bilirubin (0.2-1) mg/dl Direct Bilirubin (0-0.2) mg/dl AST (15-37) U/L ALT (12-78) U/L Alkaline Phosphatase (45-117) U/L Ammonia (11-32) umol/L Total Creatine Kinase (39-308) U/L Troponin I (0-0.045) ng/ml Total Protein (6.4-8.2) gm/dl Albumin (3.4-5.0) gm/dl Globulin (2.5-4.0) gm/dl Albumin/Globulin Ratio (0.9-2) Lipase (73-393) U/L Prolactin ng/ml Salicylates (2.8-20) mg/dl Acetaminophen (10-30) ug/ml Ethyl Alcohol mg/dL (0-3) mg/dl COVID-19 Eval Order SARS-CoV-2 (PCR) (Negative) Miscellaneous Test Miscellaneous Test 2
--- NOTE | 2021-01-21 17:14 | Ultrasound Report ---
ABDOMINAL ULTRASOUND, RIGHT UPPER QUADRANT HISTORY: Elevated bilirubin.. COMPARISON: None. FINDINGS: Pancreas: The pancreatic head and tail are obscured by overlying bowel gas. The remaining portions of the pancreas are within normal limits. Liver: 17 cm in length. Slightly heterogeneous echotexture. No hepatic masses or intrahepatic bile du ct dilatation. Trace perihepatic ascites. Subtle nodular contour to the liver suggestive of cirrhosis . Gallbladder: Sludge and small stones seen within the gallbladder. Diffuse gallbladder wall thickening measuring up to 5 mm. Trace pericholecystic fluid. The technologist reported a negative sonographic Walls sign. CBD: 4 mm. Right kidney: No hydronephrosis. IMPRESSION: 1. Subtle nodular contour to the liver with trace perihepatic ascites. Findings likely represent mild cirrhosis. 2. Diffuse gallbladder wall thickening, trace pericholecystic fluid, and small stones/sludge within t he gallbladder. This nonspecific but may be due to the patient's suspected cirrhosis. An acute cholec ystitis could also have a similar appearance but is considered less likely given the negative sonogra phic Walls sign. Clinical correlation recommended. ACT 112: Negative or not required by law. Electronically signed by: Derek Davison M.D. 01/21/2021 5:13 PM
[2021-01-21 17:34] LABS: Hepatitis B Surf Ag Rflx Conf Neg (Neg)
[2021-01-21] MEDS ORDERED: LACTATED RINGER'S 500 ML IV ONE (17:37)
[2021-01-21 18:02] LABS: Hepatitis C IgG 13Yrs+Old_Rflx Neg (Neg)
--- NOTE | 2021-01-21 18:10 | History & Physical Report ---
Date of Service January 21, 2021 Assessment & Plan (1) Alcoholic hepatitis: Patient not encephalopathic with INR 1.3 and NH3 <10 - MELD 19, Discriminant function-15 - As per GI- no NAC, steroids, or lactulose at this time - Follow daily levels - Hypotension multifactorial including liver disease- - Follow electrolytes, Calcium should increase with his dietary intake - INR/PTT/Fibrinogen in the morning - Normal Lipase - Hepatitis labs pending - Thiamine 300 mg PO daily - Folate 1mg daily - Albumin 2.0 Unable to perform salicylates/acetaminophen with icteric level (2) Syncope: Most likely per reports and physical exam consistent with hypovolemia - Patient also endorses that he has not been eating or drinking much sine at [facility] because of gastric bypass surgery and the food not being good - Will give 500 ml LR bolus followed by LR at 125, can decrease with urine output - Hold Propranolol until euvolemic- then restart for portal hypertension (3) Hyperbilirubinemia: Gallbladder not tender with palpation- consistent with his liver pathology and juandice - Ultrasound abomen completed - Lipase normal (4) Hypokalemia: Given total of 30 meq in the EMD - Continue with another 60meq K PO x1 now - LR as above - Follow lytes (5) Hypotension: multifactorial as above, mentating well, no evidence of organ dysfunction or sepsis - if continues consider albumin 25% - chronic need with cirrhosis can consider midodrine 5-15 mg - Likely wrong sized cuff used for measurement (6) Pancytopenia: Pancytopenia likely at this time related to his bone marrow supression from ETOH use - follow platelet count - Continue with VTE prophylaxis - Monitor HGB/HCT with equilibration of volume status (7) Alcohol abuse: Withdraw protocol with Ativan for symtpology (8) Abnormal chest xray: 1. 9 mm right midlung zone pulmonary nodule versus summation. A chest CT scan is recommended in follow-up. (9) Bipolar disorder: Continue Buspar and Seroquel (10) H/O gastric bypass: - dietary consult for further recommendations - Pyroxidine (B-6) daily, will also help with seizure threshold (11) Malnutrition: With ETOH abuse, poor dietary intake, lack of vitamin supplementation - albumin 2.0 History of Present Illness Primary Care Provider: Jorje Shafer 50 YOM with past medical history of alcohol misuse/abuse, with alcoholic hepatitis/cirrhosis and bipolar. Patient was at [facility] rehab for the past 4 days attempting to get sober again. He was sitting on the couch and passed out, he just remembers getting light headed and "fuzzy" he denies any loss of bowel or bladder incontinence, he reports that he has not had seizures before when trying to stop drinking. The patien'ts last drink was 4 days ago. His normal consumption is a 6 pack per night of [place] light. Patient also reports he was sober for 6 months prior to falling down the steps and breaking his leg, but unable to recall how long ago this was. Patient also endorses history of simón sofie bypass surgery in the past and remains on vitamin b6 for this but is not in his medication recommendation. He denies any incidence of dark, tarry stools, or hematemesis. Unsure of variceal history. Patient is icteric, not encephalopathic, and his INR is normal at this time. LFTs are normal, with elevated bilirubin and thrombocytopenia. he has no other evidence of organ dysfunction. His abdomen is not ascitic and not tender. In the EMD he received 2L crystalloids and awaiting urinary sampling. Blood cultures and urine cultures will be drawn, GI has been consulted by the EMD. He will be admitted, continue with IVF and follow his MELD/INR/Encephalopathy/detoxification. Allergies Allergy/AdvReac Type Severity Reaction Status Date / Time No Known Allergies Allergy Unverified 01/21/21 11:47 Home Medications Medication Instructions Recorded Confirmed Type buspirone 30 mg PO BID 01/21/21 01/21/21 History propranolol 10 mg PO BID 01/21/21 01/21/21 History quetiapine [Seroquel] 100 mg PO HS 01/21/21 01/21/21 History Past Med/Surg History Medical History (Updated 01/21/21 @ 18:56 by CAMERON Nieves) Alcoholic cirrhosis Bipolar disorder Chronic alcohol abuse Depression with anxiety Surgical History (Updated 01/21/21 @ 18:51 by CAMERON Nieves) Gastric bypass status for obesity Social History Smoking Status: Never smoker Tobacco Type: Smokeless Tobacco (Dip or Chew) Do You Dip or Chew Tobacco: Yes; Hx Alcohol Use: Yes Alcohol type: beer Alcohol Intake Frequency: 4 or More x per/Week Hx Substance Use: No Preferred Language: Russian Beliefs That Will Affect Care: None Current Living Situation: Spouse Other Information That Helps Us Care for You: No Feels Safe at Home: Yes Safety Concerns: Feels Safe At This Time Assistive Devices: None Review of Systems Review of Systems: REVIEW OF SYSTEMS: Constitutional: No fever, sweats or chills Eyes: (+) icterus, No diplopia, no worsening or blurred vision ENT: normal hearing, no trouble swallowing Respiratory: No cough, sputum, dyspnea at rest or on exertion Cardiovascular: No chest pain, tightness or palpitations Abdomen: No pain, nausea, vomiting, diarrhea or constipation Musculoskeletal: No joint pain, calf pain, swelling Neurologic: (+) genralized weakness, numbness/tingling, or balance problems Psychiatric: (+) bipolar and depression, No anxiety Skin: (+) echymosis, No rash or itch Physical Exam Physical Exam: PHYSICAL EXAM: General: awake, alert, appropriate and no apparent distress Head: Normocephalic, atraumatic ENT: mild icterus, PERRLA, EOMI, no pharyngeal exudate, mucous membranes moist Neuro: AAO x 3, speech clear and appropriate, strength intact bilaterally 5/5, sensation intact and equal all extremities and dermatomes, no pronator drift, no asterixis no shaking, coordination intact Chest: equal rise and fall of the chest, no accessory muscle use, no heaves or thrills, Clear to auscultation, on room air, Cardiac: Regular rate and rhythm, telemetry reviewed- NSR no ectopy, skin warm dry, cap refill <3 seconds, peripheral pulses +2 no JVD, no murmur, no edema GI: NABS x 4 quadrants, soft, nontender to palpation, no rebound, guarding or tenderness, liver enlarged, no cirrhosis : Has yet to void, but denies any difficulty or pain with urination Extremities: Normal inspection, no peripheral edema or erythema, calfs nontender to palpation Psych: Normal mood and affect Skin: jaundiced, no rash or erythema Results & Data Results & Data ([facility]) Vital Signs (Past 12 Hours) Vital Signs Temp Pulse Resp BP Pulse Ox 01/21/21 16:30 81/58 L 99 01/21/21 16:00 15 82/59 L 100 01/21/21 15:30 74 22 96/60 L 98 01/21/21 15:01 21 96/67 L 99 01/21/21 15:00 21 98 01/21/21 14:31 66 19 89/64 L 100 01/21/21 14:17 16 103/65 99 01/21/21 13:00 73 12 82/58 L 98 01/21/21 12:54 100 H 16 90/58 L 97 01/21/21 11:59 19 90/61 L 96 01/21/21 11:12 19 97/67 L 100 01/21/21 10:40 98 01/21/21 10:34 36.6 C 66 18 91/65 L 98 Laboratory Results Abnormal lab results 01/21/21 01/21/21 01/21/21 Range/Units 11:01 11:01 11:01 WBC 3.56 L (4.8-10.8) K/uL RBC 3.18 L (4.7-6.1) M/uL Hgb 11.2 L (14.0-18.0) g/dL Hct 33.2 L (42-52) % MCV 104.4 H (80-100) fL MCH 35.2 H (25-34) pg RDW Std Deviation 58.6 H (36.4-46.3) fL RDW Coeff of Alexandra 15.4 H (11.5-14.5) % Plt Count 86 L (130-400) K/uL MPV 11.3 H (7.4-10.4) fL Lymph # (Auto) 0.59 L (1.2-3.4) K/uL Platelet Estimate Decreased L (Normal) PT 13.3 H (9.0-12.0) Seconds INR 1.3 H (0.9-1.1) Potassium 2.8 L (3.5-5.1) mmol/L BUN 5 L (7-18) mg/dl Creatinine 0.58 L (0.6-1.4) mg/dl BUN/Creatinine Ratio 8.0 L (10-20) Glucose 111 H (70-99) mg/dl Calcium 8.1 L (8.5-10.1) mg/dl Total Bilirubin 9.0 H (0.2-1) mg/dl Direct Bilirubin 6.5 H (0-0.2) mg/dl AST 252 H (15-37) U/L Alkaline Phosphatase 325 H (45-117) U/L Ammonia (11-32) umol/L Total Creatine Kinase 27 L (39-308) U/L Albumin 2.0 L (3.4-5.0) gm/dl Globulin 5.2 H (2.5-4.0) gm/dl Albumin/Globulin Ratio 0.4 L (0.9-2) Lipase 53 L (73-393) U/L 01/21/21 Range/Units 11:01 WBC (4.8-10.8) K/uL RBC (4.7-6.1) M/uL Hgb (14.0-18.0) g/dL Hct (42-52) % MCV (80-100) fL MCH (25-34) pg RDW Std Deviation (36.4-46.3) fL RDW Coeff of Alexandra (11.5-14.5) % Plt Count (130-400) K/uL MPV (7.4-10.4) fL Lymph # (Auto) (1.2-3.4) K/uL Platelet Estimate (Normal) PT (9.0-12.0) Seconds INR (0.9-1.1) Potassium (3.5-5.1) mmol/L BUN (7-18) mg/dl Creatinine (0.6-1.4) mg/dl BUN/Creatinine Ratio (10-20) Glucose (70-99) mg/dl Calcium (8.5-10.1) mg/dl Total Bilirubin (0.2-1) mg/dl Direct Bilirubin (0-0.2) mg/dl AST (15-37) U/L Alkaline Phosphatase (45-117) U/L Ammonia < 10.0 L (11-32) umol/L Total Creatine Kinase (39-308) U/L Albumin (3.4-5.0) gm/dl Globulin (2.5-4.0) gm/dl Albumin/Globulin Ratio (0.9-2) Lipase (73-393) U/L Diagnostic Findings Chest X-Ray 01/21/21 10:34 XR chest 1V portable CLINICAL HISTORY: Atypical chest pain COMPARISON STUDY: No previous studies for comparison. FINDINGS: The heart is normal in size. There is no failure. There is no focal pulmonary consolidation. There is a 9 mm right midlung zone pulmonary nodule versus vascular summation. A chest CT scan is recommended in follow-up. There is no failure. There are no pleural effusions.[There is equivocal slight interstitial thickening. IMPRESSION: 1. 9 mm right midlung zone pulmonary nodule versus summation. A chest CT scan is recommended in follow-up. Electronically signed by: Papa Lopez M.D. 01/21/2021 10:[address] 01/21/21 10:34 CT OF THE HEAD WITHOUT CONTRAST CLINICAL HISTORY: SZ COMPARISON STUDY: No previous studies for comparison. CT DOSE: 537.48 mGy.cm TECHNIQUE: Helical axial images of the head were obtained without IV contrast. Automated exposure control was utilized for the study. A dose lowering technique was utilized adhering to the principles of ALARA. FINDINGS: No acute intracranial hemorrhage, midline shift or mass effect is present. Ventricular system is normal. Basilar cisterns are patent. There are no extra-axial collections. There are no findings to suggest acute dural sinus thrombosis or acute territorial infarct. There is no calvarial fracture. Left ethmoid air cells are partially opacified. IMPRESSION: No acute intracranial findings. Electronically signed by: Michel Mccrary M.D. 01/21/2021 11:42 AM Gallbladder Ultrasound 01/21/21 15:24 ABDOMINAL ULTRASOUND, RIGHT UPPER QUADRANT HISTORY: Elevated bilirubin.. COMPARISON: None. FINDINGS: Pancreas: The pancreatic head and tail are obscured by overlying bowel gas. The remaining portions of the pancreas are within normal limits. Liver: 17 cm in length. Slightly heterogeneous echotexture. No hepatic masses or intrahepatic bile duct dilatation. Trace perihepatic ascites. Subtle nodular contour to the liver suggestive of cirrhosis. Gallbladder: Sludge and small stones seen within the gallbladder. Diffuse gallbladder wall thickening measuring up to 5 mm. Trace pericholecystic fluid. The technologist reported a negative sonographic Walls sign. CBD: 4 mm. Right kidney: No hydronephrosis. IMPRESSION: 1. Subtle nodular contour to the liver with trace perihepatic ascites. Findings likely represent mild cirrhosis. 2. Diffuse gallbladder wall thickening, trace pericholecystic fluid, and small stones/sludge within the gallbladder. This nonspecific but may be due to the patient's suspected cirrhosis. An acute cholecystitis could also have a similar appearance but is considered less likely given the negative sonographic Walls sign. Clinical correlation recommended. Electronically signed by: Derek Davison M.D. 01/21/2021 5:13 PM Medications Administered Discontinued Medications Sodium Chloride (Nss) 500 mls @ 999 mls/hr IV .Q31M JASS Stop: 01/21/21 11:15 Last Infusion: 01/21/21 11:12 Dose: 0 mls/hr Documented by: [id number] Admin: 01/21/21 10:41 Dose: 999 mls/hr Documented by: [id number] Sodium Chloride (Nss 1000ml) 500 mls @ 999 mls/hr IV .Q31M ONE Stop: 01/21/21 15:28 Last Infusion: 01/21/21 15:40 Dose: 0 mls/hr Documented by: [id number] Admin: 01/21/21 15:08 Dose: 999 mls/hr Documented by: [id number] Potassium Chloride (K Jakob / Wtr) 10 meq in 100 mls @ 100 mls/hr IV ONE ONE Stop: 01/21/21 15:57 Last Infusion: 01/21/21 16:08 Dose: 0 mls/hr Documented by: [id number] Admin: 01/21/21 15:08 Dose: 100 mls/hr Documented by: [id number] Sodium Chloride (Nss 1000ml) 500 mls @ 999 mls/hr IV .Q31M ONE Stop: 01/21/21 16:07 Last Infusion: 01/21/21 16:19 Dose: 0 mls/hr Documented by: [id number] Admin: 01/21/21 15:40 Dose: 999 mls/hr Documented by: [id number] Lactated Ringer's (Lr) 500 mls @ 999 mls/hr IV .Q31M ONE Stop: 01/21/21 18:07 Last Admin: 01/21/21 17:37 Dose: 999 mls/hr Documented by: [id number] Potassium Chloride (Potassium Chloride Crtab 20 Meq Tabcr) 20 meq PO NOW STA Stop: 01/21/21 14:59 Last Admin: 01/21/21 15:08 Dose: 20 meq Documented by: [id number] ECG Additional Comments: Vent. Rate : 063 BPM Atrial Rate : 063 BPM P-R Int : 164 ms QRS Dur : 084 ms QT Int : 452 ms P-R-T Axes : 068 028 028 degrees QTc Int : 462 ms Normal sinus rhythm Normal ECG No previous ECGs available Code Status & VTE Plan Code Status CODE: FULL VTE: SCD's, Heparin 5000 units sub q q8 VTE Prophylaxis Plan VTE Prophylaxis will be ordered: Yes Supervising Physician Co-Signing Physician Notes SAMPLE CARRIER Supervision note: I have personally seen and examined the patient and discussed and verified the shelton points of the history and physical along with the plan with CAMERON Vasques with the following exceptions and/or additions: Patient is a 50-year-old male with history of alcohol abuse and alcoholic cirrhosis, bipolar disorder, here after passing out with standing up at the [facility] facility. He reports he has passed out in the past and typically has low blood pressures. He stopped drinking alcohol 4 days ago. Denies chest pain shortness of breath, no abdominal pain, no bloody stools or vomiting. History nor is reviewed as above Vitals reviewed Gen: AAOx3, NAD, jaundiced HEENT: Icteric sclerae, EOMI CV: RRR no mgr nl S1S2 Pulm: CTAB no wcr Abd: +BS soft NT ND no masses or hernias Ext: No edema, 2+ DP pulses Skin: No rashes, warm/dry Neuro: Full strength throughout Laboratory values reviewed Imaging reviewed 50-year-old male here with history of alcohol abuse, alcoholic hepatitis and cirrhosis Ultrasound of abdomen with thickened gallbladder wall but no abdominal pain, fevers, do not suspect acute cholecystitis With hypotension-volume resuscitate as above Replace potassium Syncope likely due to orthostasis and dehydration -Follow CBC, CMP, magnesium Watch for alcohol withdrawal Eventually, will discharge back to [facility] Care Time/CCT Total # of Minutes Spent Total Time Spent with Patient: Total time spent is greater than 50% in coordination of care (as documented) at patient's floor/unit and/or counseling patient: Coding Level of Care Code 41335 Initial Inpt Care Lvl 3 Diagnoses Alcoholic hepatitis K70.10 Ascites presence: unspecified Syncope R55 Syncope type: unspecified Hyperbilirubinemia E80.6 Hypokalemia E87.6 Hypotension I95.9 Hypotension type: unspecified hypotension type Pancytopenia D61.818 Alcohol abuse F10.10 Abnormal chest xray R93.89 Bipolar disorder F31.70 Active/Remission status: in full remission Most recent bipolar episode type: most recent episode unspecified type H/O gastric bypass Z98.84 Malnutrition E44.1 Malnutrition type: protein-calorie malnutrition Protein-calorie malnutrition severity: mild (1) Bipolar disorder Active/Remission status: in full remission Most recent bipolar episode type: most recent episode unspecified type Qualified Code(s): F31.70 - Bipolar disorder, currently in remission, most recent episode unspecified (2) Alcoholic hepatitis Ascites presence: unspecified Qualified Code(s): K70.10 - Alcoholic hepatitis without ascites (3) Syncope Syncope type: unspecified Qualified Code(s): R55 - Syncope and collapse (4) Malnutrition Malnutrition type: protein-calorie malnutrition Protein-calorie malnutrition severity: mild Qualified Code(s): E44.1 - Mild protein-calorie malnutrition (5) Hypotension Hypotension type: unspecified hypotension type Qualified Code(s): I95.9 - Hypotension, unspecified
[2021-01-21] MEDS: LACTATED RINGER'S 1,000 ML IV SCH (19:24)
[2021-01-21 19:40] LABS: Appearance Urine Clear (Clear); Color Urine Brown
[2021-01-21 19:41] LABS: Specific Gravity Urine 1.015 (1.000-1.030)
[2021-01-21 19:55] LABS: Mucus Urine Present (None Prsent)
[2021-01-21 19:59] LABS: Bacteria Urine 1+ (Negative); Epithelial Cell Urine 20-30 /lpf (0-5); Hyaline Casts Urine 0-5 /lpf (0-5); RBC Urine 0-4 /hpf (0-4)
[2021-01-21 20:25] LABS: Amphetamines+Metham, Urine Neg (Neg); Barbiturates, Urine Neg (Neg); Benzodiazepine, Urine Neg (Neg); Cocaine, Urine Neg (Neg); MDMA (Ecstacy), Urine Neg (Neg); Methadone, Urine Neg (Neg); Opiate, Urine Neg (Neg); Phencyclidine, Urine Neg (Neg)
[2021-01-21] MEDS ORDERED: THIAMINE HCL 300 MG in SYRINGE 9 ML IV SCH (20:40)
[2021-01-21] MEDS ORDERED: ONDANSETRON INJ 2 MG/ML 2 ML VIAL IV PRN (20:40)
[2021-01-21] MEDS ORDERED: LORazepam 3 MG/6 ML VIAL IV PRN (20:40)
[2021-01-21] MEDS ORDERED: ATIVAN IV ALCOHOL WITHDRAWL IV PRN (20:40)
[2021-01-21] MEDS ORDERED: LORazepam 1 MG/2 ML VIAL IV PRN ×2 (20:40)
[2021-01-21] MEDS ORDERED: LORazepam 2 MG/4 ML VIAL IV PRN (20:40)
[2021-01-21 22:02] LABS: Fibrinogen 122 mg/dl (184-400)
[2021-01-21] MEDS: FOLIC ACID 1 MG in SYRINGE 9.8 ML IV SCH (22:24)
[2021-01-21] MEDS: THIAMINE HCL 300 MG in 0.9 % SODIUM CHLORIDE 100 ML IV SCH (22:24)
[2021-01-21] MEDS: QUEtiapine FUMARATE 100 MG TABLET PO SCH (22:24)
[2021-01-21] MEDS: POTASSIUM CHLORIDE 10 MEQ TABCR PO SCH (22:24)
[2021-01-21] MEDS: busPIRone 15 MG TAB PO SCH (22:24)
[2021-01-21] MEDS: HEPARIN SOD 5,000 UNIT/0.5 ML VIAL SQ SCH (22:25)
[2021-01-22] MEDS: POTASSIUM CHLORIDE 10 MEQ TABCR PO SCH (02:08)
[2021-01-22] MEDS: HEPARIN SOD 5,000 UNIT/0.5 ML VIAL SQ SCH ×3 (05:45→20:13)
[2021-01-22] MEDS: LACTATED RINGER'S 1,000 ML IV SCH ×2 (05:46→16:45)
[2021-01-22 07:17] LABS: Hematocrit (blood only) 28.8 % (42-52); Hemoglobin 9.8 g/dL (14.0-18.0); Mean Corpuscular Hemoglobin 35.5 pg (25-34); Mean Corpuscular Volume 104.3 fL (80-100); Platelet Count 81 K/uL (130-400); RDW Coefficient of Variation 15.7 % (11.5-14.5); RDW Standard Deviation 59.4 fL (36.4-46.3); Red Blood Count 2.76 M/uL (4.7-6.1); White Blood Count 4.13 K/uL (4.8-10.8)
[2021-01-22 07:39] LABS: Basophils # (auto) 0.02 K/uL (0-0.2); Basophils % (auto) 0.5 %; Eosinophils # (auto) 0.05 K/uL (0-0.5); Eosinophils % (auto) 1.2 %; Lymphocytes # (auto) 1.42 K/uL (1.2-3.4); Lymphocytes % (auto) 34.4 %; Monocytes # (auto) 0.38 K/uL (0.11-0.59); Monocytes % (auto) 9.2 %; Neutrophils # (auto) 2.26 K/uL (1.4-6.5); Neutrophils % (auto) 54.7 %; Target Cells 2+
[2021-01-22 07:44] LABS: INR 1.5 (0.9-1.1); Partial Thromboplastin Ratio 1.8; Prothrombin Time 14.9 Seconds (9.0-12.0)
[2021-01-22 07:52] LABS: Partial Thromboplastin Time 46.7 Seconds (21.0-31.0)
[2021-01-22 08:04] LABS: Alanine Aminotransferase 44 U/L (12-78); Albumin Level 1.5 gm/dl (3.4-5.0); Aspartate Aminotransferase 169 U/L (15-37); BUN Creatinine Ratio 11.4 (10-20); Blood Urea Nitrogen 5 mg/dl (7-18); Calcium 7.4 mg/dl (8.5-10.1); Carbon Dioxide 25 mmol/L (21-32); Chloride 109 mmol/L (98-107); Creatinine Clr Calc Pharmacy 202.2 ml/min; Est GFR (African American) > 150.0 ml/min; Est GFR (Non-African American) 140.5 ml/min; Glucose 71 mg/dl (70-99); Potassium 3.3 mmol/L (3.5-5.1); Sodium 141 mmol/L (136-145)
[2021-01-22 08:06] LABS: Albumin Globulin Ratio 0.4 (0.9-2); Alkaline Phosphatase 240 U/L (45-117); Bilirubin,Total 6.2 mg/dl (0.2-1); Phosphorus 1.6 mg/dl (2.5-4.9); Total Protein 5.5 gm/dl (6.4-8.2)
[2021-01-22] MEDS ORDERED: POTASSIUM PHOS 3 MMOL/1 ML INFUSION IV STA (08:46)
[2021-01-22] MEDS ORDERED: POTASSIUM CHLORIDE CRTAB 20 MEQ TABCR PO STA (08:46)
[2021-01-22] MEDS ORDERED: POTASSIUM PHOSPHATE 15 MMOL in SODIUM CHLORIDE 0.9% 250 ML IV ONE (09:00)
[2021-01-22] MEDS ORDERED: PYRIDOXINE HCL 50 MG TAB PO SCH (09:00)
[2021-01-22] MEDS: FOLIC ACID 1 MG in SYRINGE 9.8 ML IV SCH (09:31)
[2021-01-22] MEDS: busPIRone 15 MG TAB PO SCH ×2 (09:32→20:13)
[2021-01-22] MEDS: THIAMINE HCL 300 MG in 0.9 % SODIUM CHLORIDE 100 ML IV SCH (10:46)
--- NOTE | 2021-01-22 12:31 | Hospitalist Progress Note ---
Date of Service January 22, 2021 Assessment & Plan (1) Alcoholic hepatitis: Patient not encephalopathic with INR 1.3 and NH3 <10 on admission, today INR up to 1.5 APPA and ASA both now returned as normal (send out for icterus) - MELD 19, Discriminant function-15 - As per GI- no NAC, steroids, or lactulose at this time -LFTs improving today, albumin quite low at 1.5 Abd US with thickened GB wall but likely due to cirrhosis - Hypotension multifactorial including liver disease, also was on propranolol at home which has been held - Follow electrolytes, replace today with phos and KCl - Normal Lipase - Hepatitis labs pending -continue Thiamine 300 mg IV daily - continue Folate 1mg IV daily -continued EtOH cessation advised (2) Syncope: Most likely per reports and physical exam consistent with hypovolemia - Patient also endorses that he has not been eating or drinking much sine at [facility] because of gastric bypass surgery and the food not being good - improving but still with low BPs, some lightheadedness with standing -continue LR maintenance fluids - Hold Propranolol until euvolemic- then restart for portal hypertension -check orthostatics today -no events on tele no need for ECHO (3) Hyperbilirubinemia: Gallbladder not tender with palpation- consistent with his liver pathology and juandice - Ultrasound abomen completed and no obstruction - Lipase normal -improving today down to 6 (4) Hypokalemia: continue to replace today but is improving now tolerating improved po follow BMP, Mag (5) Hypotension: multifactorial as above, mentating well, no evidence of organ dysfunction or sepsis - if continues consider albumin 25% - chronic need with cirrhosis can consider midodrine 5-15 mg - ensure proper sized cuff used for measurement (6) Pancytopenia: Pancytopenia likely at this time related to his bone marrow suppression from ETOH use and cirrhosis B12 level normal - follow platelet count-stable in 80s - Continue with VTE prophylaxis - Monitor HGB/HCT with equilibration of volume status (7) Alcohol abuse: Withdraw protocol with Ativan for symtpology (8) Abnormal chest xray: 1.9 mm right midlung zone pulmonary nodule versus summation. A chest CT scan is recommended in follow-up. Can be done as outpt (9) Bipolar disorder: Continue Buspar and Seroquel (10) H/O gastric bypass: - dietary consult for further recommendations - Pyroxidine (B-6) daily, will also help with seizure threshold (11) Malnutrition: With ETOH abuse, poor dietary intake, lack of vitamin supplementation - albumin 1.5 muscle wasting (12) DVT prophylaxis: Heparin SQ Dispo-continued stay on PCU due to hypotension Eventually dc to home and he already has outpt EtOH rehab plans in place through [facility] Admission and Anticipated Discharge Date Admission Date: January 21, 2021 Subjective Feels better, still some lightheadedness with standing. No abd pain, no N/V. Moved his bowels today, no blood or melena. BPs remain low but improved from previous. Tele with NSR rates 60-70s Review of Systems Review of Systems: All systems reviewed & are unremarkable except as noted in HPI & below Physical Exam Constitutional: WD/WN, vitals as above no acute distress Eyes: + scleral abnormality (icterus) Neck: trachea midline, no thyromegaly Respiratory: normal respiratory effort, lungs clear to auscultation Cardiovascular: RRR, no murmur, no edema Chest (Breasts): Chest: normal inspection of chest Gastrointestinal (Abdomen): normal bowel sounds, soft, nontender, no hepatosplenomegaly Musculoskeletal: Extremities: extremities normal to inspection; no cyanosis and no clubbing Skin: + jaundice Neurologic: moves all extremities and awake; no focal motor deficits Psychiatric: A+Ox3, euthymic affect Lymphatic: no lymphedema Results & Data Results & Data ([facility]) Vital Signs (Past 12 Hours) Vital Signs Temp Pulse Pulse Resp BP Pulse Ox 01/22/21 11:56 36.5 C 67 17 88/58 L 95 01/22/21 08:35 63 01/22/21 07:32 36.5 C 73 17 91/55 L 96 01/22/21 03:51 36.7 C 71 20 88/54 L 94 Laboratory Results 01/22/21 01/22/21 01/22/21 Range/Units 06:58 06:58 06:58 WBC (4.8-10.8) K/uL RBC (4.7-6.1) M/uL Hgb (14.0-18.0) g/dL Hct (42-52) % MCV (80-100) fL MCH (25-34) pg MCHC (32-36) g/dL RDW Std Deviation (36.4-46.3) fL RDW Coeff of Alexandra (11.5-14.5) % Plt Count (130-400) K/uL MPV (7.4-10.4) fL Immature Gran % (Auto) % Neut % (Auto) % Lymph % (Auto) % Callaway % (Auto) % Eos % (Auto) % Baso % (Auto) % Neut # (Auto) (1.4-6.5) K/uL Lymph # (Auto) (1.2-3.4) K/uL Callaway # (Auto) (0.11-0.59) K/uL Eos # (Auto) (0-0.5) K/uL Baso # (Auto) (0-0.2) K/uL Immature Gran # (Auto) (0.00-0.02) K/uL Target Cells PT 14.9 H (9.0-12.0) Seconds INR 1.5 H (0.9-1.1) APTT 46.7 H* (21.0-31.0) Seconds PTT Ratio 1.8 Fibrinogen (184-400) mg/dl Sodium 141 (136-145) mmol/L Potassium 3.3 L D (3.5-5.1) mmol/L Chloride 109 H (98-107) mmol/L Carbon Dioxide 25 (21-32) mmol/L Anion Gap 7.0 (3-11) BUN 5 L (7-18) mg/dl Creatinine 0.40 L (0.6-1.4) mg/dl Est Cr Clr Drug Dosing 202.2 ml/min Est GFR ( Amer) > 150.0 ml/min Est GFR (Non-Af Amer) 140.5 ml/min BUN/Creatinine Ratio 11.4 (10-20) Glucose 71 (70-99) mg/dl Calcium 7.4 L (8.5-10.1) mg/dl Phosphorus 1.6 L (2.5-4.9) mg/dl Total Bilirubin 6.2 H (0.2-1) mg/dl AST 169 H (15-37) U/L ALT 44 (12-78) U/L Alkaline Phosphatase 240 H (45-117) U/L Total Protein 5.5 L D (6.4-8.2) gm/dl Albumin 1.5 L (3.4-5.0) gm/dl Globulin 4.0 (2.5-4.0) gm/dl Albumin/Globulin Ratio 0.4 L (0.9-2) Vitamin B12 > 2000 H (193-986) pg/ml Urine Color Urine Appearance (Clear) Urine pH (4.5-7.5) Ur Specific Exchange (1.000-1.030) Urine Protein (Negative) Urine Glucose (UA) (Negative) Urine Ketones (Negative) Urine Blood (Negative) Urine Nitrite (Negative) Urine Bilirubin (Negative) Urine Urobilinogen (Negative) Ur Leukocyte Esterase (Negative) Urine RBC (0-4) /hpf Urine WBC (0-5) /hpf Ur Epithelial Cells (0-5) /lpf Urine Bacteria (Negative) Hyaline Casts (0-5) /lpf Urine Mucus (None Prsent) Nasal Screen MRSA (PCR) (Negative) Urine Opiates Screen (Neg) Ur Methadone, Qual (Neg) Urine Barbiturates (Neg) Ur Phencyclidine (PCP) (Neg) U Amphetamin/Meth Scrn (Neg) MDMA (Ecstasy) Screen (Neg) U Benzodiazepines Scrn (Neg) Ur Cocaine Metabolite (Neg) U Marijuana (THC) Screen (Neg) SARS-CoV-2 (PCR) (Negative) Hepatitis A IgM Ab Hep Bs Antigen (Neg) Hep B Core IgM Ab Hepatitis C Antibody (Neg) Miscellaneous Test Miscellaneous Test 2 01/22/21 01/21/21 01/21/21 Range/Units 06:58 21:12 21:10 WBC 4.13 L (4.8-10.8) K/uL RBC 2.76 L (4.7-6.1) M/uL Hgb 9.8 L (14.0-18.0) g/dL Hct 28.8 L (42-52) % MCV 104.3 H (80-100) fL MCH 35.5 H (25-34) pg MCHC 34.0 (32-36) g/dL RDW Std Deviation 59.4 H (36.4-46.3) fL RDW Coeff of Alexandra 15.7 H (11.5-14.5) % Plt Count 81 L (130-400) K/uL MPV 12.0 H (7.4-10.4) fL Immature Gran % (Auto) 0.0 % Neut % (Auto) 54.7 % Lymph % (Auto) 34.4 % Callaway % (Auto) 9.2 % Eos % (Auto) 1.2 % Baso % (Auto) 0.5 % Neut # (Auto) 2.26 (1.4-6.5) K/uL Lymph # (Auto) 1.42 (1.2-3.4) K/uL Callaway # (Auto) 0.38 (0.11-0.59) K/uL Eos # (Auto) 0.05 (0-0.5) K/uL Baso # (Auto) 0.02 (0-0.2) K/uL Immature Gran # (Auto) 0.00 (0.00-0.02) K/uL Target Cells 2+ PT (9.0-12.0) Seconds INR (0.9-1.1) APTT (21.0-31.0) Seconds PTT Ratio Fibrinogen 122 L (184-400) mg/dl Sodium (136-145) mmol/L Potassium (3.5-5.1) mmol/L Chloride (98-107) mmol/L Carbon Dioxide (21-32) mmol/L Anion Gap (3-11) BUN (7-18) mg/dl Creatinine (0.6-1.4) mg/dl Est Cr Clr Drug Dosing ml/min Est GFR ( Amer) ml/min Est GFR (Non-Af Amer) ml/min BUN/Creatinine Ratio (10-20) Glucose (70-99) mg/dl Calcium (8.5-10.1) mg/dl Phosphorus (2.5-4.9) mg/dl Total Bilirubin (0.2-1) mg/dl AST (15-37) U/L ALT (12-78) U/L Alkaline Phosphatase (45-117) U/L Total Protein (6.4-8.2) gm/dl Albumin (3.4-5.0) gm/dl Globulin (2.5-4.0) gm/dl Albumin/Globulin Ratio (0.9-2) Vitamin B12 (193-986) pg/ml Urine Color Urine Appearance (Clear) Urine pH (4.5-7.5) Ur Specific Exchange (1.000-1.030) Urine Protein (Negative) Urine Glucose (UA) (Negative) Urine Ketones (Negative) Urine Blood (Negative) Urine Nitrite (Negative) Urine Bilirubin (Negative) Urine Urobilinogen (Negative) Ur Leukocyte Esterase (Negative) Urine RBC (0-4) /hpf Urine WBC (0-5) /hpf Ur Epithelial Cells (0-5) /lpf Urine Bacteria (Negative) Hyaline Casts (0-5) /lpf Urine Mucus (None Prsent) Nasal Screen MRSA (PCR) Negative (Negative) Urine Opiates Screen (Neg) Ur Methadone, Qual (Neg) Urine Barbiturates (Neg) Ur Phencyclidine (PCP) (Neg) U Amphetamin/Meth Scrn (Neg) MDMA (Ecstasy) Screen (Neg) U Benzodiazepines Scrn (Neg) Ur Cocaine Metabolite (Neg) U Marijuana (THC) Screen (Neg) SARS-CoV-2 (PCR) (Negative) Hepatitis A IgM Ab Hep Bs Antigen (Neg) Hep B Core IgM Ab Hepatitis C Antibody (Neg) Miscellaneous Test Miscellaneous Test 2 01/21/21 01/21/21 01/21/21 Range/Units 19:26 19:26 11:53 WBC (4.8-10.8) K/uL RBC (4.7-6.1) M/uL Hgb (14.0-18.0) g/dL Hct (42-52) % MCV (80-100) fL MCH (25-34) pg MCHC (32-36) g/dL RDW Std Deviation (36.4-46.3) fL RDW Coeff of Alexandra (11.5-14.5) % Plt Count (130-400) K/uL MPV (7.4-10.4) fL Immature Gran % (Auto) % Neut % (Auto) % Lymph % (Auto) % [place]away % (Auto) % Eos % (Auto) % Baso % (Auto) % Neut # (Auto) (1.4-6.5) K/uL Lymph # (Auto) (1.2-3.4) K/uL [place] # (Auto) (0.11-0.59) K/uL Eos # (Auto) (0-0.5) K/uL Baso # (Auto) (0-0.2) K/uL Immature Gran # (Auto) (0.00-0.02) K/uL Target Cells PT (9.0-12.0) Seconds INR (0.9-1.1) APTT (21.0-31.0) Seconds PTT Ratio Fibrinogen (184-400) mg/dl Sodium (136-145) mmol/L Potassium (3.5-5.1) mmol/L Chloride (98-107) mmol/L Carbon Dioxide (21-32) mmol/L Anion Gap (3-11) BUN (7-18) mg/dl Creatinine (0.6-1.4) mg/dl Est Cr Clr Drug Dosing ml/min Est GFR ( Amer) ml/min Est GFR (Non-Af Amer) ml/min BUN/Creatinine Ratio (10-20) Glucose (70-99) mg/dl Calcium (8.5-10.1) mg/dl Phosphorus (2.5-4.9) mg/dl Total Bilirubin (0.2-1) mg/dl AST (15-37) U/L ALT (12-78) U/L Alkaline Phosphatase (45-117) U/L Total Protein (6.4-8.2) gm/dl Albumin (3.4-5.0) gm/dl Globulin (2.5-4.0) gm/dl Albumin/Globulin Ratio (0.9-2) Vitamin B12 (193-986) pg/ml Urine Color Brown Urine Appearance Clear (Clear) Urine pH (4.5-7.5) Ur Specific Exchange 1.015 (1.000-1.030) Urine Protein (Negative) Urine Glucose (UA) (Negative) Urine Ketones (Negative) Urine Blood (Negative) Urine Nitrite (Negative) Urine Bilirubin (Negative) Urine Urobilinogen (Negative) Ur Leukocyte Esterase (Negative) Urine RBC 0-4 (0-4) /hpf Urine WBC 5-10 H (0-5) /hpf Ur Epithelial Cells 20-30 H (0-5) /lpf Urine Bacteria 1+ H (Negative) Hyaline Casts 0-5 (0-5) /lpf Urine Mucus Present A (None Prsent) Nasal Screen MRSA (PCR) (Negative) Urine Opiates Screen Neg (Neg) Ur Methadone, Qual Neg (Neg) Urine Barbiturates Neg (Neg) Ur Phencyclidine (PCP) Neg (Neg) U Amphetamin/Meth Scrn Neg (Neg) MDMA (Ecstasy) Screen Neg (Neg) U Benzodiazepines Scrn Neg (Neg) Ur Cocaine Metabolite Neg (Neg) U Marijuana (THC) Screen Neg (Neg) SARS-CoV-2 (PCR) NEGATIVE (Negative) Hepatitis A IgM Ab Hep Bs Antigen (Neg) Hep B Core IgM Ab Hepatitis C Antibody (Neg) Miscellaneous Test Miscellaneous Test 2 01/21/21 01/21/21 01/21/21 Range/Units 11:49 11:01 11:01 WBC (4.8-10.8) K/uL RBC (4.7-6.1) M/uL Hgb (14.0-18.0) g/dL Hct (42-52) % MCV (80-100) fL MCH (25-34) pg MCHC (32-36) g/dL RDW Std Deviation (36.4-46.3) fL RDW Coeff of Alexandra (11.5-14.5) % Plt Count (130-400) K/uL MPV (7.4-10.4) fL Immature Gran % (Auto) % Neut % (Auto) % Lymph % (Auto) % [place] % (Auto) % Eos % (Auto) % Baso % (Auto) % Neut # (Auto) (1.4-6.5) K/uL Lymph # (Auto) (1.2-3.4) K/uL [place] # (Auto) (0.11-0.59) K/uL Eos # (Auto) (0-0.5) K/uL Baso # (Auto) (0-0.2) K/uL Immature Gran # (Auto) (0.00-0.02) K/uL Target Cells PT (9.0-12.0) Seconds INR (0.9-1.1) APTT (21.0-31.0) Seconds PTT Ratio Fibrinogen (184-400) mg/dl Sodium (136-145) mmol/L Potassium (3.5-5.1) mmol/L Chloride (98-107) mmol/L Carbon Dioxide (21-32) mmol/L Anion Gap (3-11) BUN (7-18) mg/dl Creatinine (0.6-1.4) mg/dl Est Cr Clr Drug Dosing ml/min Est GFR ( Amer) ml/min Est GFR (Non-Af Amer) ml/min BUN/Creatinine Ratio (10-20) Glucose (70-99) mg/dl Calcium (8.5-10.1) mg/dl Phosphorus (2.5-4.9) mg/dl Total Bilirubin (0.2-1) mg/dl AST (15-37) U/L ALT (12-78) U/L Alkaline Phosphatase (45-117) U/L Total Protein (6.4-8.2) gm/dl Albumin (3.4-5.0) gm/dl Globulin (2.5-4.0) gm/dl Albumin/Globulin Ratio (0.9-2) Vitamin B12 (193-986) pg/ml Urine Color Urine Appearance (Clear) Urine pH (4.5-7.5) Ur Specific Exchange (1.000-1.030) Urine Protein (Negative) Urine Glucose (UA) (Negative) Urine Ketones (Negative) Urine Blood (Negative) Urine Nitrite (Negative) Urine Bilirubin (Negative) Urine Urobilinogen (Negative) Ur Leukocyte Esterase (Negative) Urine RBC (0-4) /hpf Urine WBC (0-5) /hpf Ur Epithelial Cells (0-5) /lpf Urine Bacteria (Negative) Hyaline Casts (0-5) /lpf Urine Mucus (None Prsent) Nasal Screen MRSA (PCR) (Negative) Urine Opiates Screen (Neg) Ur Methadone, Qual (Neg) Urine Barbiturates (Neg) Ur Phencyclidine (PCP) (Neg) U Amphetamin/Meth Scrn (Neg) MDMA (Ecstasy) Screen (Neg) U Benzodiazepines Scrn (Neg) Ur Cocaine Metabolite (Neg) U Marijuana (THC) Screen (Neg) SARS-CoV-2 (PCR) (Negative) Hepatitis A IgM Ab Pending Hep Bs Antigen Neg (Neg) Hep B Core IgM Ab Pending Hepatitis C Antibody Neg (Neg) Miscellaneous Test REPORT Miscellaneous Test 2 REPORT PG Care Time/CCT Total # of Minutes Spent Total Time Spent with Patient: Total time spent is greater than 50% in coordination of care (as documented) at patient's floor/unit and/or counseling patient: Coding Level of Care Code 08833 Subseq Hosp Care Lvl 3 Diagnoses Alcoholic hepatitis K70.10 Ascites presence: unspecified Syncope R55 Syncope type: unspecified Hyperbilirubinemia E80.6 Hypokalemia E87.6 Hypotension I95.9 Hypotension type: unspecified hypotension type Pancytopenia D61.818 Alcohol abuse F10.10 Abnormal chest xray R93.89 Bipolar disorder F31.70 Active/Remission status: in full remission Most recent bipolar episode type: most recent episode unspecified type H/O gastric bypass Z98.84 Malnutrition E44.1 Malnutrition type: protein-calorie malnutrition Protein-calorie malnutrition severity: mild DVT prophylaxis Z29.9 (1) Alcoholic hepatitis Ascites presence: unspecified Qualified Code(s): K70.10 - Alcoholic hepatitis without ascites (2) Syncope Syncope type: unspecified Qualified Code(s): R55 - Syncope and collapse (3) Hypotension Hypotension type: unspecified hypotension type Qualified Code(s): I95.9 - Hypotension, unspecified (4) Bipolar disorder Active/Remission status: in full remission Most recent bipolar episode type: most recent episode unspecified type Qualified Code(s): F31.70 - Bipolar disorder, currently in remission, most recent episode unspecified (5) Malnutrition Malnutrition type: protein-calorie malnutrition Protein-calorie malnutrition severity: mild Qualified Code(s): E44.1 - Mild protein-calorie malnutrition
--- NOTE | 2021-01-22 15:05 | Gastroenterology Progress Note ---
Date of Service January 22, 2021 Assessment & Plan Admission and Anticipated Discharge Date Admission Date: January 21, 2021 Subjective No complaints. VS = 80-90/50-60. Pulse 67 CV: RRR Resp: CTA Abd: soft Labs reviewed - stable creat, hgb 10/Hct 30 with pancytopenia and MCV 104, DF = 20 but AP and bili improved from yest, albumin 1.5 A/P: Alc Hep = No need intervention, remains mild and falling bili + ap suggest good prognosis. No need beta blockade unless pt has known varices, unlikely to tolerate with borderline BP Hypoalbuminemia = Likely related to malnutrition from alcoholism, RYGB. DDX = protein losing enteropathy from portal colopathy, nephrosis. Encourage PO intake, check zinc and replace if low, consider nutrition consult for calorie count and recommendations regarding supplementation. Will sign off, but please reconsult if needed. Results & Data ([facility]) Vital Signs (Past 12 Hours) Vital Signs Temp Pulse Pulse Resp BP Pulse Ox 01/22/21 11:56 36.5 C 67 17 88/58 L 95 01/22/21 08:35 63 01/22/21 07:32 36.5 C 73 17 91/55 L 96 01/22/21 03:51 36.7 C 71 20 88/54 L 94
[2021-01-22] MEDS: CHOLECALCIFEROL 1,000 UNITS 25 MCG TAB PO SCH (17:24)
[2021-01-22] MEDS: CEROVITE ADV FORMULA TAB PO SCH (17:24)
[2021-01-22] MEDS: QUEtiapine FUMARATE 100 MG TABLET PO SCH (20:13)
[2021-01-22] MEDS ORDERED: CALCIUM CITRATE 950 MG TAB PO SCH (21:00)
[2021-01-22 21:46] LABS: Fibrinogen 191 mg/dl (184-400)
[2021-01-23] MEDS: LACTATED RINGER'S 1,000 ML IV SCH (03:14)
[2021-01-23] MEDS: HEPARIN SOD 5,000 UNIT/0.5 ML VIAL SQ SCH ×2 (05:57→14:11)
[2021-01-23 06:06] LABS: Hepatitis A Antibody IgM NON-REACTIVE (NON-REACTIVE); Hepatitis B Core Antibody IgM NON-REACTIVE (NON-REACTIVE)
[2021-01-23 06:26] LABS: Hematocrit (blood only) 33.5 % (42-52); Hemoglobin 11.3 g/dL (14.0-18.0); Mean Corpuscular Hemoglobin 35.6 pg (25-34); Mean Corpuscular Hgb Conc 33.7 g/dL (32-36); Mean Corpuscular Volume 105.7 fL (80-100); Mean Platelet Volume 12.2 fL (7.4-10.4); Platelet Count 90 K/uL (130-400); RDW Coefficient of Variation 15.5 % (11.5-14.5); RDW Standard Deviation 60.2 fL (36.4-46.3); Red Blood Count 3.17 M/uL (4.7-6.1); White Blood Count 4.71 K/uL (4.8-10.8)
[2021-01-23 06:49] LABS: INR 1.5 (0.9-1.1); Partial Thromboplastin Ratio 2.4; Prothrombin Time 14.7 Seconds (9.0-12.0)
[2021-01-23 07:03] LABS: Basophils # (auto) 0.02 K/uL (0-0.2); Basophils % (auto) 0.4 %; Eosinophils # (auto) 0.06 K/uL (0-0.5); Eosinophils % (auto) 1.3 %; Immature Granulocytes # (auto) 0.02 K/uL (0.00-0.02); Immature Granulocytes % (auto) 0.4 %; Lymphocytes % (auto) 27.6 %; Monocytes # (auto) 0.49 K/uL (0.11-0.59); Monocytes % (auto) 10.4 %; Neutrophils # (auto) 2.82 K/uL (1.4-6.5); Neutrophils % (auto) 59.9 %; Pappenheimer Bodies 1+; Polychromasia 1+; Rouleaux 1+; Target Cells 1+; Toxic Granulation Occasional; Toxic Vacuolation Occasional
[2021-01-23 07:20] LABS: Alanine Aminotransferase 44 U/L (12-78); Albumin Level 1.5 gm/dl (3.4-5.0); Alkaline Phosphatase 243 U/L (45-117); Aspartate Aminotransferase 145 U/L (15-37); BUN Creatinine Ratio 10.8 (10-20); Bilirubin Direct 4.3 mg/dl (0-0.2); Bilirubin,Total 5.7 mg/dl (0.2-1); Blood Urea Nitrogen 5 mg/dl (7-18); Calcium 7.8 mg/dl (8.5-10.1); Carbon Dioxide 26 mmol/L (21-32); Chloride 108 mmol/L (98-107); Creatinine Clr Calc Pharmacy 188.7 ml/min; Est GFR (African American) > 150.0 ml/min; Est GFR (Non-African American) 136.3 ml/min; Ferritin 377.9 ng/ml (8-388); Glucose 76 mg/dl (70-99); Iron 58 mcg/dl (35-175); Phosphorus 2.4 mg/dl (2.5-4.9); Potassium 3.4 mmol/L (3.5-5.1); Sodium 138 mmol/L (136-145); Total Iron Binding Capacity 88 mcg/dl (250-450); Total Protein 5.7 gm/dl (6.4-8.2); Transferrin 67 mg/dl (200-360); Transferrin Percent Saturation 61 % (20-50)
[2021-01-23 07:24] LABS: Partial Thromboplastin Time 62.8 Seconds (21.0-31.0)
[2021-01-23] MEDS: CHOLECALCIFEROL 1,000 UNITS 25 MCG TAB PO SCH (07:45)
[2021-01-23] MEDS: FOLIC ACID 1 MG in SYRINGE 9.8 ML IV SCH (07:45)
[2021-01-23] MEDS: busPIRone 15 MG TAB PO SCH (07:46)
[2021-01-23] MEDS: CEROVITE ADV FORMULA TAB PO SCH (07:46)
[2021-01-23] MEDS ORDERED: POTASSIUM PHOS 3 MMOL/1 ML INFUSION IV STA (07:47)
[2021-01-23] MEDS: THIAMINE HCL 300 MG in 0.9 % SODIUM CHLORIDE 100 ML IV SCH (07:49)
[2021-01-23] MEDS ORDERED: POTASSIUM PHOSPHATE 21 MMOL in SODIUM CHLORIDE 0.9% 500 ML IV ONE (08:00)
--- NOTE | 2021-01-23 17:01 | Discharge Summary ---
Date of Service January 23, 2021 Admission HPI Per Admitting Provider 50 YOM with past medical history of alcohol misuse/abuse, with alcoholic hepatitis/cirrhosis and bipolar. Patient was at [facility] rehab for the past 4 days attempting to get sober again. He was sitting on the couch and passed out, he just remembers getting light headed and "fuzzy" he denies any loss of bowel or bladder incontinence, he reports that he has not had seizures before when trying to stop drinking. The patien'ts last drink was 4 days ago. His normal consumption is a 6 pack per night of [place] light. Patient also reports he was sober for 6 months prior to falling down the steps and breaking his leg, but unable to recall how long ago this was. Patient also endorses history of gastric bypass surgery in the past and remains on vitamin b6 for this but is not in his medication recommendation. He denies any incidence of dark, tarry stools, or hematemesis. Unsure of variceal history. Patient is icteric, not encephalopathic, and his INR is normal at this time. LFTs are normal, with elevated bilirubin and thrombocytopenia. he has no other evidence of organ dysfunction. His abdomen is not ascitic and not tender. In the EMD he received 2L crystalloids and awaiting urinary sampling. Blood cultures and urine cultures will be drawn, GI has been consulted by the EMD. He will be admitted, continue with IVF and follow his MELD/INR/Encephalopathy/detoxification. Principal Diagnosis Orthostatic hypotension with syncope, alcoholic hepatitis Discharge Exam Constitutional WD/WN, vitals as above no acute distress Eyes + scleral abnormality (icterus) Neck trachea midline, no thyromegaly Respiratory normal respiratory effort, lungs clear to auscultation Cardiovascular RRR, no murmur, no edema Chest (Breasts) Chest: normal inspection of chest Gastrointestinal (Abdomen) normal bowel sounds, soft, nontender, no hepatosplenomegaly Musculoskeletal Extremities: extremities normal to inspection; no cyanosis and no clubbing Skin + jaundice Neurologic moves all extremities and awake; no focal motor deficits Psychiatric A+Ox3, euthymic affect Lymphatic no lymphedema Discharge Data Allergies Allergy/AdvReac Type Severity Reaction Status Date / Time No Known Allergies Allergy Unverified 01/21/21 11:47 Consultations 01/21/21 15:24 Consult Gastroenterology Stat 01/21/21 15:37 ED Decision to Admit Stat Ordered Studies 01/21/21 10:34 CT head/brain wo con Stat 01/21/21 15:24 US gallbladder Stat Chest X-Ray 01/21/21 10:34 XR chest 1V portable CLINICAL HISTORY: Atypical chest pain COMPARISON STUDY: No previous studies for comparison. FINDINGS: The heart is normal in size. There is no failure. There is no focal pulmonary consolidation. There is a 9 mm right midlung zone pulmonary nodule versus vascular summation. A chest CT scan is recommended in follow-up. There is no failure. There are no pleural effusions.[There is equivocal slight interstitial thickening. IMPRESSION: 1. 9 mm right midlung zone pulmonary nodule versus summation. A chest CT scan is recommended in follow-up. ACT 112: Positive. There are findings on this exam that require communication between the performing entity and the patient following Patient Test Result Information Act ([place] Act 112) guidelines. Electronically signed by: Papa Lopez M.D. 01/21/2021 10:[address] 01/21/21 10:34 CT OF THE HEAD WITHOUT CONTRAST CLINICAL HISTORY: SZ COMPARISON STUDY: No previous studies for comparison. CT DOSE: 537.48 mGy.cm TECHNIQUE: Helical axial images of the head were obtained without IV contrast. Automated exposure control was utilized for the study. A dose lowering technique was utilized adhering to the principles of ALARA. FINDINGS: No acute intracranial hemorrhage, midline shift or mass effect is present. Ventricular system is normal. Basilar cisterns are patent. There are no extra-axial collections. There are no findings to suggest acute dural sinus thrombosis or acute territorial infarct. There is no calvarial fracture. Left ethmoid air cells are partially opacified. IMPRESSION: No acute intracranial findings. ACT 112: Negative or not required by law. Electronically signed by: Michel Mccrary M.D. 01/21/2021 11:42 AM Gallbladder Ultrasound 01/21/21 15:24 ABDOMINAL ULTRASOUND, RIGHT UPPER QUADRANT HISTORY: Elevated bilirubin.. COMPARISON: None. FINDINGS: Pancreas: The pancreatic head and tail are obscured by overlying bowel gas. The remaining portions of the pancreas are within normal limits. Liver: 17 cm in length. Slightly heterogeneous echotexture. No hepatic masses or intrahepatic bile duct dilatation. Trace perihepatic ascites. Subtle nodular contour to the liver suggestive of cirrhosis. Gallbladder: Sludge and small stones seen within the gallbladder. Diffuse gallbladder wall thickening measuring up to 5 mm. Trace pericholecystic fluid. The technologist reported a negative sonographic Walls sign. CBD: 4 mm. Right kidney: No hydronephrosis. IMPRESSION: 1. Subtle nodular contour to the liver with trace perihepatic ascites. Findings likely represent mild cirrhosis. 2. Diffuse gallbladder wall thickening, trace pericholecystic fluid, and small stones/sludge within the gallbladder. This nonspecific but may be due to the patient's suspected cirrhosis. An acute cholecystitis could also have a similar appearance but is considered less likely given the negative sonographic Walls sign. Clinical correlation recommended. ACT 112: Negative or not required by law. Electronically signed by: Derek Davison M.D. 01/21/2021 5:13 PM Hospital Course (1) Alcoholic hepatitis: Patient not encephalopathic with INR 1.3 and NH3 <10 on admission, today INR up to 1.5 and stable from previous APAP and ASA both now returned as normal (send out for icterus) - MELD 19, Discriminant function-15 - As per GI- no NAC, steroids, or lactulose at this time -LFTs continue to be improving today, albumin quite low at 1.5 Abd US with thickened GB wall but likely due to cirrhosis - Hypotension multifactorial including liver disease, also was on propranolol at home which has been discontinued -Replaced electrolytes that were low - Normal Lipase - Hepatitis A, B, and C negative -Received thiamine 300 mg IV daily and will convert to p.o. thiamine upon discharge - continue Folate 1mg p.o. daily -continued EtOH cessation advised-he has plans for outpatient rehab (2) Syncope: Most likely per reports and physical exam consistent with hypovolemia and orthostasis - Patient also endorses that he has not been eating or drinking much sine at [facility] because of gastric bypass surgery and the food not being good -No further lightheadedness with standing and orthostatic vital signs are negative -Received IV fluids -Discontinue propranolol-not needed unless he has history of esophageal varices- he does not think he has had an EGD before -no events on tele no need for ECHO (3) Hyperbilirubinemia: Gallbladder not tender with palpation- consistent with his liver pathology and jaundice Direct bilirubin elevated at 4.3 - Ultrasound abomen completed and no obstruction - Lipase normal -Total bilirubin improving today down to 5.7 (4) Hypokalemia: Replaced daily Should improve once p.o. intake continues to improve (5) Hypotension: multifactorial as above, mentating well, no evidence of organ dysfunction or sepsis Improved with discontinuing propranolol and hydrating with IV fluids - chronic need with cirrhosis can consider midodrine 5-15 mg - ensure proper sized cuff used for measurement (6) Pancytopenia: Pancytopenia likely at this time related to his bone marrow suppression from ETOH use and cirrhosis B12 level normal - follow platelet count-stable at 90 (7) Alcohol abuse: Withdraw protocol with Ativan as needed (8) Abnormal chest xray: 1.9 mm right midlung zone pulmonary nodule versus summation. A chest CT scan is recommended in follow-up. Can be done as outpt (9) Bipolar disorder: Continue Buspar and Seroquel (10) H/O gastric bypass: - dietary consult for further recommendations (11) Malnutrition: With ETOH abuse, poor dietary intake, lack of vitamin supplementation - albumin 1.5 muscle wasting (12) DVT prophylaxis: Heparin SQ was used Dispo-medically stable for dc to home and he already has outpt EtOH rehab plans in place through [facility] Total Time Total Time Spent Total Time Spent (In Minutes): 35 minutes Total Time Includes: Examination of the Patient, Discharge Planning and Medication Reconciliation Discharge Plan Discharge Items Patient Disposition: Home - Self-Care Reason For Visit: ETOH, SYNCOPE Discharge Diagnosis: Syncope, Alcoholic hepatitis, Dehydration Condition on Discharge: Fair Activity: As commented below Lifting: Gradually increase as tolerated Bathing: No limitations Exercise/Sports: Gradually increase as tolerated Driving/Machine Use: No driving until seen by your doctor and cleared to do so Non-emergency contact: Primary Care Provider and Hearing And Speech Assistant Call non-emergency contact if: you have any medication questions and your symptoms worsen Follow-up/Referrals: Milton Martinez MD [Physician] - (Please follow up with the Hearing And Speech Assistant for your liver within 2 weeks.) Jorje Shafer M.D. [Primary Care Provider] - (Please follow up within 1-2 weeks ) Diet: Regular Addtl Attending Provider Instructions: Please take the vitamins recommended as prescribed. It is important for you to follow up with your primary care doctor and have repeat liver tests and basic metabolic panel to check your potassium level in the next week. It is extremely important that you continue to NOT DRINK ANY ALCOHOL. You should STOP taking the propranolol as this makes your blood pressure too low. Follow up with your outpatient alcohol rehab program as soon as possible. Pending Studies at Discharge: Yes Stand-Alone Forms: My [facility], Smoking Cessation Medications and DC Order Prescriptions: New calcium citrate-vitamin D3 [Citracal + D Maximum] 315 mg-6.25 mcg (250 unit) Tablet 1 tab PO QPM Qty: 30 RF: 0 cholecalciferol (vitamin D3) 25 mcg (1,000 unit) Capsule 1,000 unit PO QAM Qty: 30 RF: 0 Certavite-Antioxidant 18-400 mg-mcg Tablet 1 tab PO QAM Qty: 30 RF: 0 thiamine HCl (vitamin B1) 100 mg tablet 100 mg PO DAILY Qty: 30 RF: 0 folic acid 1 mg tablet 1 mg PO DAILY Qty: 30 RF: 0 Continued quetiapine [Seroquel] 100 mg Tablet 100 mg PO HS RF: 0 buspirone 30 mg Tablet 30 mg PO BID RF: 0 Discontinued propranolol 10 mg Tablet 10 mg PO BID RF: 0 Discharge Orders: Discharge Order (Routine); Ordered 01/23/21 Ordered By: Lesly Quinonez Admission Data Admit Date/Time: 01/21/21 18:31 Attending Provider: Lesly Quionnez Admit Provider: Tremaine Vasques Primary Care Provider: Jorje Shafer Other Providers: Lesly Quinonez ; Milton Martinez Other Interventions: Discharge Summary Assessment (RN) Last Done: 01/23/21 17:30 Coding Level of Care Code D/C DAY MANAGEMENT >30 MINS Diagnoses Alcoholic hepatitis K70.10 Ascites presence: unspecified Syncope R55 Syncope type: unspecified Hyperbilirubinemia E80.6 Hypokalemia E87.6 Hypotension I95.9 Hypotension type: unspecified hypotension type Pancytopenia D61.818 Alcohol abuse F10.10 Abnormal chest xray R93.89 Bipolar disorder F31.70 Active/Remission status: in full remission Most recent bipolar episode type: most recent episode unspecified type H/O gastric bypass Z98.84 Malnutrition E44.1 Malnutrition type: protein-calorie malnutrition Protein-calorie malnutrition severity: mild DVT prophylaxis Z29.9
[2021-01-26 04:56] LABS: Zinc 19 mcg/dL (60-130)
--- NOTE | 2021-02-02 08:46 | Coding Query ---
CODING QUERY To promote full compliance with coding requirements relating to patient care, provider participation is requested in all cases of political science instructor uncertainty. Please assist us with the question(s) below: Coding Question(s): Per discharge, Patient with Syncope, Alcoholic Hepatitis. Please clarify which condition was the reason for admission below: (x ) Syncope ( ) Alcohol Hepatitis ( ) Other Please Explain: Thank you Erik Munguia Principal Diagnosis: "that condition established after study, to be chiefly responsible for occasioning the admission of the patient to the hospital for care." Co-Existing Principal Diagnosis: "when two or more diagnoses equally meet the criteria for principal diagnosis as determined by the circumstances of admission, diagnostic work up, and/or therapy provided, and the Alphabetic Index, Tabular List, or another coding guideline does not provide sequencing direction, any one of the diagnoses may be sequenced first." "When the physician has documented what appears to be a current diagnosis in the body of the record, but has not included the diagnosis in the final diagnostic statement, the physician should be asked whether the diagnosis should be added." (Source Coding [facility] 2 QTR90. p3-4) [facility]
== END 2021-01-23 18:34 | disposition home or self-care (01) | DRG 312 ==
LOC: ED 10:19 → 2E 18:31